=== PATIENT | male | born 1940 | race Caucasian/White ===

== ENCOUNTER → 2016-10-17 | Outpatient (REF) | payer BC, MEDICARE ==
[~2016-10-17] MED LIST: ASPI1TAB PO; ATOR1TAB19 PO; FERR1TAB8 PO; FINA5TAB2 PO; FLOM5CAP PO; GLIP5TAB8 PO; HYDR25TAB PO; JANU100T PO; LISI40TAB PO; METF500T13 PO; PRIL20CA9 PO; SITA50TAB PO
[2016-10-17 19:18] LABS: ALBUMIN 3.4 GM/DL (3.2-5.2); ALBUMIN/GLOBULIN RATIO 0.94 (1.00-1.93); ALKALINE PHOSPHATASE 99 U/L (45-117); ALT/SGPT 15 U/L (12-78); ANION GAP 9 MEQ/L (8-16); AST/SGOT 14 U/L (15-37); BILIRUBIN,TOTAL 0.4 MG/DL (0.2-1.0); BLOOD UREA NITROGEN 11 MG/DL (7-18); CALCIUM LEVEL 8.3 MG/DL (8.8-10.2); CARBON DIOXIDE LEVEL 27 MEQ/L (21-32); CHLORIDE LEVEL 104 MEQ/L (98-107); CREATININE FOR GFR 0.95 MG/DL (0.70-1.30); GLOMERULAR FILTRATION RATE > 60.0 (>42); GLUCOSE, FASTING 139 MG/DL (83-110); POTASSIUM SERUM 3.9 MEQ/L (3.5-5.1); SODIUM LEVEL 140 MEQ/L (136-145)
[2016-10-17 19:37] LABS: ADD MORPHOLOGY? YES; BASO % 0.7 % (0.0-1.0); EOS # 0.1 K/mm3 (0.0-0.50); EOS % 2.3 % (0.0-3.0); LARGE UNSTAINED CELL # 0.1 K/mm3 (0.0-0.4); LARGE UNSTAINED CELL % 1.9 % (0.0-4.0); LYMPH # 0.7 K/mm3 (1.5-4.5); LYMPH % 13.6 % (24.0-44.0); MEAN CORPUSCULAR HEMOGLOBIN 19.4 pg (27.0-33.0); MEAN CORPUSCULAR HGB CONC 25.5 g/dl (32.0-36.5); MEAN CORPUSCULAR VOLUME 75.8 fl (80.0-96.0); MONO # 0.4 K/mm3 (0.0-0.8); MONO % 7.1 % (0.0-5.0); NEUTROPHILS # 4.1 K/mm3 (1.8-7.7); NEUTROPHILS % 74.4 % (36.0-66.0); PLATELET COUNT, AUTOMATED 490 k/mm3 (150-450); RED CELL DISTRIBUTION WIDTH 15.8 % (11.5-14.5); WHITE BLOOD COUNT 5.5 K/mm3 (4.0-10.0)
[2016-10-17 21:08] LABS: ANISOCYTOSIS 1+
[2016-10-17 21:09] LABS: HYPOCHROMASIA 2+; POIKILOCYTOSIS 1+; POLYCHROMASIA 1+; SCHISTOCYTES 1+
== END ==
LOC: M SFHCCAPE 11:05
PROVIDERS: ATTEND Nurse Practitioner
DX: R23.1 Pallor (principal); E11.00 Type 2 diabetes mellitus with hyperosmolarity without nonketotic hyperglycemic-hyperosmolar coma (NKHHC)

== ENCOUNTER 2016-10-18 06:50 | Observation (INO) | payer BC, MEDICARE ==
[~2016-10-18] VITALS: Ht 185.4 cm; Wt 79.8 kg
[2016-10-18] MEDS ORDERED: GLIP5TAB8 PO (07:04)
[2016-10-18] MEDS ORDERED: FLOM5CAP PO (07:04)
[2016-10-18] MEDS ORDERED: FINA5TAB2 PO (07:04)
[2016-10-18] MEDS ORDERED: PRIL20CA9 PO (07:04)
[2016-10-18] MEDS ORDERED: ASPI1TAB PO (07:04)
[2016-10-18] MEDS ORDERED: METF500T13 PO ×2 (07:04→09:15)
[2016-10-18] MEDS ORDERED: LISI40TAB PO (07:04)
[2016-10-18] MEDS ORDERED: ATOR1TAB19 PO (07:04)
[2016-10-18] MEDS ORDERED: SITA50TAB PO (07:04)
[2016-10-18] MEDS ORDERED: HYDR25TAB PO (07:04)
[2016-10-18 07:57] LABS: MEAN CORPUSCULAR HEMOGLOBIN 19.1 pg (27.0-33.0); MEAN CORPUSCULAR HGB CONC 26.2 g/dl (32.0-36.5); MEAN CORPUSCULAR VOLUME 72.8 fl (80.0-96.0); PLATELET COUNT, AUTOMATED 491 k/mm3 (150-450); RED CELL DISTRIBUTION WIDTH 16.1 % (11.5-14.5)
[2016-10-18 08:02] LABS: WHITE BLOOD COUNT 7.5 K/mm3 (4.0-10.0)
[2016-10-18 08:08] LABS: ANION GAP 10 MEQ/L (8-16); BLOOD UREA NITROGEN 9 MG/DL (7-18); CALCIUM LEVEL 8.9 MG/DL (8.8-10.2); CARBON DIOXIDE LEVEL 27 MEQ/L (21-32); CHLORIDE LEVEL 104 MEQ/L (98-107); CREATININE FOR GFR 0.92 MG/DL (0.70-1.30); GLOMERULAR FILTRATION RATE > 60.0 (>42); GLUCOSE, FASTING 195 MG/DL (83-110); POTASSIUM SERUM 3.5 MEQ/L (3.5-5.1); SODIUM LEVEL 141 MEQ/L (136-145)
[2016-10-18 08:29] LABS: ALBUMIN 3.5 GM/DL (3.2-5.2); ALBUMIN/GLOBULIN RATIO 0.92 (1.00-1.93); ALKALINE PHOSPHATASE 101 U/L (45-117); ALT/SGPT 13 U/L (12-78); AST/SGOT 21 U/L (15-37); BILIRUBIN,DIRECT < 0.1 MG/DL (0.0-0.2); BILIRUBIN,TOTAL 0.3 MG/DL (0.2-1.0); PERCENT SATURATION 8.4 % (19.7-50.0); TOTAL IRON BINDING CAPACITY 261 UG/DL (250-450); TOTAL PROTEIN 7.3 GM/DL (6.4-8.2)
[2016-10-18 08:30] LABS: INR 0.97
[2016-10-18 08:37] LABS: DIFF SLIDE NUMBER 130
[2016-10-18 08:38] LABS: RETIC HEMOGLOBIN CONTENT CHr 20.9 PG (24-36); RETICULOCYTE % 2.65 % (0.5-1.5); RETICULOCYTE ABSOLUTE ADVIA212 79 x10(9)/L (17-77)
--- NOTE | 2016-10-18 09:11 | REP ---
Chest two views HISTORY: Cough Comparison: None The lungs are clear. The heart is normal in size. The pulmonary vasculature is normal in appearance. Degenerative change is present in the spine. IMPRESSION: No acute disease. Signed by Luis A Vinson MD 10/18/2016 09:03 A
[2016-10-18] MEDS ORDERED: JANU100T PO (09:15)
[2016-10-18 10:18] LABS: EOSINOPHILS 4 % (0-5)
[2016-10-18 10:19] LABS: ANISOCYTOSIS 2+; HYPOCHROMASIA 2+; OVALOCYTES 1+
[2016-10-18 10:20] LABS: ACANTHOCYTES 1+
[2016-10-18] MEDS ORDERED: GLUCOSE 4 GM CHEW TABLET PO PRN (10:30)
[2016-10-18] MEDS ORDERED: DEXTROSE 50% 50 ML SYRINGE IV PRN (10:30)
[2016-10-18] MEDS ORDERED: ONDANSETRON 4MG/2ML VIAL (J2405) IV PRN (10:30)
[2016-10-18] MEDS ORDERED: GLUCAGON FOR INJ 1 MG VIAL (J1610) SC PRN (10:30)
[2016-10-18] MEDS ORDERED: ACETAMINOPHEN TAB 650MG DOSE (2X325MG) PO PRN (10:30)
--- NOTE | 2016-10-18 10:49 | ECGEPIP ---
Stationary ECG Study [facility] - ED Test Date: 2016-10-18 Pat Name: MATTHEW BUTTS Department: Room: - Gender: M Counseling Aide: JCristofer : 1940 Requested By: Maddison Scott Order Number: [id number] Reading MD: Maddison Scott Measurements Intervals [place] Rate: 97 P: 35 PA: 171 QRS: -24 QRSD: 134 T: 16 QT: 376 QTc: 480 Interpretive Statements SINUS RHYTHM BORDERLINE LEFT AXIS DEVIATION RIGHT BUNDLE BRANCH BLOCK NO PRIOR FOR COMPARISON Electronically Signed On 10-18-2016 10:49:25 EDT by Maddison Scott
[2016-10-18] MEDS: HumaLOG INSULIN (NovoLOG) PER UNIT SC SCH ×3 (12:47→21:00)
[2016-10-18 12:50] VITALS: BP 141/74
[2016-10-18] MEDS: OMEPRAZOLE 20 MG CAP PO SCH (13:27)
[2016-10-18] MEDS: TAMSULOSIN 0.4 MG CAP PO SCH (13:27)
[2016-10-18 16:00] VITALS: BP 127/69
[2016-10-18] MEDS: FINASTERIDE 5 MG TAB PO SCH (18:28)
--- NOTE | 2016-10-18 19:06 | HPEPDOC ---
General Date of Admission Oct 18, 2016 at 10:27 Chief Complaint The patient is a 75-year-old male admitted with a reason for visit of Anemia. Source: Patient, Family Exam Limitations: No limitations History of Present Illness 75-year-old male with past medical history of hypertension, dyslipidemia, diabetes mellitus, GERD, and BPH presents to the ER with a chief complaint of increased fatigue and weakness over the last 4 weeks. He is from the [place], [place] area where he resides 8 months out of the year. He stays in the [place] area during the summer months. The patient states that he is very active at baseline, and notes that he plays 18 holes of golf regularly, and does a lot of walking and exercise in general. However, the patient states that during this time. He has felt increasingly exhausted after any kind of physical activity. He denies any complaints of fevers, chills, chest pain, shortness of breath, lightheadedness/dizziness, abdominal pain, or any nausea/vomiting/ diarrhea. He does note that he has lost about 6 pounds over the last 3 months, however this was intentional as the patient states that he wanted to get his blood sugar levels under better control. The patient states that he presented to [place] for blood work and was noted to have a hemoglobin of 5.4. The patient states that he has not noticed any overt sources of bleeding. He denies any blood in his stool or any dark colored stools. In addition, the patient has denied any blood in his urine as well. He does state that he had a colonoscopy done approximately 5 years ago in [place]. He states that there were no acute findings at that time. In the ER, the patient was noted to have a hemoglobin of 5.6. A guaiac study in the ER was noted to be negative by the ER attending. The patient will be admitted to the hospitalist service for blood transfusion and further evaluation and management of the patient's acute anemia. Home Medications Scheduled Aspirin (Aspirin 81) 81 Mg Tab, 81 MG PO QPM, (Reported) DINNERTIME Atorvastatin Calcium (Atorvastatin Calcium) 10 Mg Tab, 10 MG PO QHS, (Reported) Finasteride (Finasteride) 5 Mg Tab, 5 MG PO DAILY, (Reported) NOONTIME Glipizide (Glipizide) 5 Mg Tab, 5 MG PO BID, (Reported) QAM AND DINNERTIME Hydrochlorothiazide (Hydrochlorothiazide) 25 Mg Tab, 25 MG PO DAILY, (Reported) Lisinopril (Lisinopril) 40 Mg Tab, 40 MG PO DAILY, (Reported) Metformin Hydrochloride (Metformin HCl) 500 Mg Tab, 1,000 MG PO QAM, (Reported) Metformin Hydrochloride (Metformin HCl) 500 Mg Tab, 500 MG PO TID, (Reported) LUNCH, DINNER, BEDTIME Omeprazole (Prilosec) 20 Mg Cap, 20 MG PO DAILY, (Reported) NOONTIME Sitagliptin Phosphate (Januvia) 100 Mg Tab, 50 MG PO QHS, (Reported) Tamsulosin Hydrochloride (Flomax) 0.4 Mg Cap, 0.4 MG PO DAILY, (Reported) NOONTIME Allergies Coded Allergies: No Known Allergies (Unverified , 10/18/16) Past Medical History Medical History As noted in HPI. Surgical History Right and left breast lump status post lumpectomy, benign. 3 years ago Bladder tumor, status post excision in 2011, noted to be benign. Family History Significant Family History: Other (multiple family members with history of diabetes mellitus. Father was diagnosed with colon cancer at age of 79.) Social History * Smoker: Denies Alcohol: Denies Drugs: denies Retired. 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 Lives with his . Functionally independent at baseline. Review of Symptoms Other systems 10 point review of systems negative unless otherwise specified in HPI. Physical Examination General Exam: Positive: Alert, Cooperative, No Acute Distress ENT Exam: Positive: Atraumatic, Mucous membr. moist/pink Neck Exam: Negative: JVD Chest Exam: Positive: Clear to auscultation, Normal air movement Heart Exam: Positive: Rate Normal, Normal S1, Normal S2 Telemetry: Positive: Sinus Abdomen Exam: Positive: Soft, Negative: Tenderness Extremity Exam: Negative: Tenderness, Swelling Psych Exam: Positive: Oriented x 3 Vital Signs Vital Signs Date Time Temp Pulse Resp B/P (MAP) Pulse Ox O2 Delivery O2 Flow Rate FiO2 10/18/16 16:00 98.7 95 18 127/69 (88) 97 Room Air Laboratory Data Labs 24H Laboratory Tests 2 10/18/16 07:34: Neutrophils 73, Lymphocytes (Manual) 19, Monocytes (Manual) 4, Eosinophils ( Manual) 4, Hypochromasia 2+, Anisocytosis 2+, Ovalocytes 1+, Acanthocytes 1+, Platelet Estimate INCREASED, Absolute Reticulocyte Count 79H, Percent Reticulocyte Count 2.65H, Reticulocyte Hgb Content (CHr) 20.9L, Prothrombin Time 13.0, Prothromb Time International Ratio 0.97, Anion Gap 10, Glomerular Filtration Rate > 60.0, Blood Urea Nitrogen 9, Creatinine 0.92, Sodium Level 141 , Potassium Level 3.5, Chloride Level 104, Carbon Dioxide Level 27, Calcium Level 8.9, Iron Level 22L, Total Iron Binding Capacity 261, Transferrin % Saturation 8.4L, Aspartate Amino Transf (AST/SGOT) 21, Alanine Aminotransferase (ALT/SGPT) 13, Alkaline Phosphatase 101, Total Bilirubin 0.3, Direct Bilirubin < 0.1, Total Protein 7.3, Albumin 3.5, Albumin/Globulin Ratio 0.92L, Lipase 153 10/18/16 12:45: Bedside Glucose (Misc Panel) 92 10/18/16 18:08: Bedside Glucose (Misc Panel) 169H CBC/BMP Laboratory Tests 10/18/16 07:34 Red Blood Count 2.92 L, Mean Corpuscular Volume 72.8 L, Mean Corpuscular Hemoglobin 19.1 L, Mean Corpuscular Hemoglobin Concent 26.2 L, Red Cell Distribution Width 16.1 H, Calcium Level 8.9 10/18/16 13:07 Plan / VTE VTE Prophylaxis Ordered?: Yes Plan Plan Acute anemia Hemoglobin noted to be 5.6 in the ER Patient with no overt source of bleeding noted Stool guaiac study negative in the ER as per ER attending We will transfuse the patient 2 units packed red blood cells and repeat an H&H thereafter We will transfuse the patient for hemoglobin greater than 8 Patient with no acute complaints of chest pain, palpitations, or shortness of breath at this time EKG with no acute ST findings Blood pressure has remained stable We will order stool occult blood study Urinalysis ordered for ascertainment for possible bleeding from a urinary source Ultrasound of the bladder ordered given the patient's history of bladder tumor removal We will continue to monitor the patient's H&H every 6 hours and transfuse as needed We will consider a colonoscopy here once the patient's hemoglobin has stabilized Diabetes mellitus We will continue the patient on insulin sliding scale for now and hold oral hypoglycemics Dyslipidemia Continue statin Hypertension, stable We will hold the patient's antihypertensives at this time as he does have acute anemia. BPH Continue Proscar, Flomax GERD Continue Prilosec DVT prophylaxis TEDs/SCDs (Anemia) Dispo. We will transfuse the patient 2 units of packed red blood cells and continue to monitor H and H as well as his vital signs. Once his hemoglobin has stabilized we will consider inpatient versus outpatient colonoscopy. MARGARITA FRANK MD Oct 18, 2016 19:06
--- NOTE | 2016-10-18 19:20 | REP ---
ULTRASOUND BLADDER: Real-time sonographic evaluation of the bladder performed. The bladder is well distended measuring 8.9 x 11.0 x 8.1 cm for a total volume of 518 mL. No bladder mass or calculus is seen. There are bilateral ureteral jets in the urinary bladder with Doppler color evaluation. Postvoid residual is 223 mL which is 43% of the original volume. IMPRESSION: Postvoid residual of 43%. No bladder mass or calculus. Signed by Erick Ardon MD 10/18/2016 08:15 P
[2016-10-18 20:00] VITALS: BP 123/62
[2016-10-18] MEDS: ATORVASTATIN 10 MG TAB PO SCH (21:20)
[2016-10-18 23:22] LABS: REASON FOR REVIEW ANEMIA / RBC MORPH
[2016-10-19] VITALS: BP 140/81
--- NOTE | 2016-10-19 00:30 | REPUSA ---
CLINICAL HISTORY: Abdominal pain. COMMENTS: There is gas in both large and small bowel with no evidence for obstruction. Large amount of fecal material is present through out the colon. There is no evidence for free air, free fluid, masses, organomegaly, or urinary calculi. S-shaped degenerative scoliosis. Impression: Large amount of fecal material. Thank you for your kind referral of this patient.
[2016-10-19 04:00] VITALS: BP 133/72
[2016-10-19 07:15] LABS: MEAN CORPUSCULAR HEMOGLOBIN 23.3 pg (27.0-33.0); MEAN CORPUSCULAR HGB CONC 30.4 g/dl (32.0-36.5); MEAN CORPUSCULAR VOLUME 76.7 fl (80.0-96.0); RED CELL DISTRIBUTION WIDTH 16.9 % (11.5-14.5); WHITE BLOOD COUNT 5.3 K/mm3 (4.0-10.0)
[2016-10-19 07:20] LABS: INR 1.03
[2016-10-19 07:30] LABS: ANION GAP 8 MEQ/L (8-16); BLOOD UREA NITROGEN 9 MG/DL (7-18); CALCIUM LEVEL 8.5 MG/DL (8.8-10.2); CARBON DIOXIDE LEVEL 28 MEQ/L (21-32); CHLORIDE LEVEL 109 MEQ/L (98-107); CREATININE FOR GFR 0.81 MG/DL (0.70-1.30); FERRITIN 7 NG/ML (26-388); GLOMERULAR FILTRATION RATE > 60.0 (>42); GLUCOSE, FASTING 149 MG/DL (83-110); MAGNESIUM LEVEL 2.2 MG/DL (1.8-2.4); POTASSIUM SERUM 3.9 MEQ/L (3.5-5.1); SODIUM LEVEL 145 MEQ/L (136-145)
[2016-10-19 08:00] VITALS: BP 138/69
[2016-10-19] MEDS: FINASTERIDE 5 MG TAB PO SCH (08:41)
[2016-10-19] MEDS: TAMSULOSIN 0.4 MG CAP PO SCH (08:41)
[2016-10-19] MEDS: HumaLOG INSULIN (NovoLOG) PER UNIT SC SCH ×4 (08:41→21:00)
[2016-10-19] MEDS: FERROUS SULFATE 325MG TAB PO SCH (08:41)
[2016-10-19] MEDS: OMEPRAZOLE 20 MG CAP PO SCH (08:41)
--- NOTE | 2016-10-19 15:48 | IPNPDOC ---
Subjective Date Seen The patient was seen on 10/19/16. Subjective Chief Complaint/HPI Patient seen and examined at the bedside. States that he is feeling well and denies any acute complaints. Notes that his bowel movement this morning was regular and denies noting any blood in it. Objective Physical Examination General Exam: Positive: Alert, Cooperative, No Acute Distress ENT Exam: Positive: Atraumatic, Mucous membr. moist/pink Neck Exam: Negative: JVD Chest Exam: Positive: Clear to auscultation, Normal air movement Heart Exam: Positive: Rate Normal, Normal S1, Normal S2 Telemetry: Positive: Sinus Abdomen Exam: Positive: Soft, Negative: Tenderness Extremity Exam: Negative: Tenderness, Swelling Psych Exam: Positive: Oriented x 3 Assessment /Plan Plan/VTE VTE Prophylaxis Ordered?: Yes Plan Acute anemia Hemoglobin noted to be 5.6 in the ER-->8.2 this afternoon (s/p Transfusion of 4 Units) Peripheral smear suggestive of Iron Def Anemia, with occult blood loss Stool guaiac study negative in the ER as per ER attending Stool Occult Blood noted to be positive No overt bright red blood or dark stools noted during BM UA negative for Blood Ultrasound of the bladder with no acute findings (Hx of Bladder tumor) Patient with no acute complaints of chest pain, palpitations, or shortness of breath at this time EKG with no acute ST findings Blood pressure has remained stable We will continue to monitor the patient's H&H every 6 hours and transfuse as needed I did discuss the case with on-call clerical associate Dr. Hurst, he will schedule the patient to see him in the outpatient setting on 10/21/16 at 1 PM and schedule an outpatient colonoscopy accordingly. I discussed this with the patient and his at the bedside Diabetes mellitus We will continue the patient on insulin sliding scale for now and hold oral hypoglycemics Dyslipidemia Continue statin Hypertension, stable We will hold the patient's antihypertensives at this time as he does have acute anemia. BPH Continue Proscar, Flomax GERD Continue Prilosec DVT prophylaxis TEDs/SCDs (Anemia) Dispo. We will monitor the patient overnight, and D/C in the AM if Hgb remains stable. VS, I&O, 24H, Fishbone Vital Signs/I&O Vital Signs Date Time Temp Pulse Resp B/P (MAP) Pulse Ox O2 Delivery O2 Flow Rate FiO2 10/19/16 08:00 97.6 97 18 138/69 (92) 100 Room Air I&O- Last 24 Hours up to 6 AM 10/19/16 06:00 Intake Total 2000 ml Output Total 1525 ml Balance 475 ml Laboratory Data 24H LABS Laboratory Tests 2 10/18/16 18:08: Bedside Glucose (Misc Panel) 169H 10/18/16 19:25: Differential Slide Review Report, Differential Pathologist's Review ANEMIA / RBC MORPH, Peripheral Blood Smear Path Consult PERIPHERAL SMEAR 10/18/16 20:50: Bedside Glucose (Misc Panel) 134H 10/19/16 06:56: Prothrombin Time 13.6, Prothromb Time International Ratio 1.03, Activated Partial Thromboplast Time 30.2, Anion Gap 8, Glomerular Filtration Rate > 60.0, Blood Urea Nitrogen 9, Creatinine 0.81, Sodium Level 145, Potassium Level 3.9, Chloride Level 109H, Carbon Dioxide Level 28, Calcium Level 8.5L, Magnesium Level 2.2, Ferritin 7L, Lactate Dehydrogenase 155 10/19/16 11:35: Urine Appearance CLEAR, Urine Color COLORLESS, Urine pH 6.0, Urine Specific [place] 1.000L, Urine Protein NEGATIVE, Urine Glucose (UA) 2+H, Urine Ketones NEGATIVE, Urine Urobilinogen 0.2, Urine Bilirubin NEGATIVE, Urine Leukocyte Esterase NEGATIVE, Urine Blood NEGATIVE, Urine Nitrite NEGATIVE, Urine WBC (Auto ) 0, Urine RBC (Auto) 0, Urine Hyaline Casts (Auto) 0, Urine Bacteria (Auto) NEGATIVE, Urine Squamous Epithelial Cells 0, Urine Sperm (Auto) 10/19/16 11:50: Bedside Glucose (Misc Panel) 254H CBC/BMP Laboratory Tests 10/18/16 19:25 10/19/16 06:56 Red Blood Count 3.49 L, Mean Corpuscular Volume 76.7 L, Mean Corpuscular Hemoglobin 23.3 L, Mean Corpuscular Hemoglobin Concent 30.4 L, Red Cell Distribution Width 16.9 H, Calcium Level 8.5 L 10/19/16 12:54 Microbiology Microbiology 10/19/16 Stool Occult Blood (TICO) - Final, Complete MARGARITA FRANK MD Oct 19, 2016 15:48
[2016-10-19 16:00] VITALS: BP 144/79
[2016-10-19 20:00] VITALS: BP 133/72
[2016-10-19] MEDS: ATORVASTATIN 10 MG TAB PO SCH (21:22)
[2016-10-19 22:10] VITALS: BP 151/89
[2016-10-20 06:00] VITALS: BP 136/63
[2016-10-20 07:45] LABS: INR 1.06
[2016-10-20 07:46] LABS: MEAN CORPUSCULAR HEMOGLOBIN 23.1 pg (27.0-33.0); MEAN CORPUSCULAR HGB CONC 29.6 g/dl (32.0-36.5); MEAN CORPUSCULAR VOLUME 78.2 fl (80.0-96.0); RED CELL DISTRIBUTION WIDTH 17.9 % (11.5-14.5)
[2016-10-20 08:06] LABS: ANION GAP 9 MEQ/L (8-16); BLOOD UREA NITROGEN 7 MG/DL (7-18); CALCIUM LEVEL 8.3 MG/DL (8.8-10.2); CARBON DIOXIDE LEVEL 28 MEQ/L (21-32); CHLORIDE LEVEL 109 MEQ/L (98-107); CREATININE FOR GFR 0.77 MG/DL (0.70-1.30); GLOMERULAR FILTRATION RATE > 60.0 (>42); GLUCOSE, FASTING 163 MG/DL (83-110); POTASSIUM SERUM 3.9 MEQ/L (3.5-5.1); SODIUM LEVEL 146 MEQ/L (136-145)
[2016-10-20] MEDS: FERROUS SULFATE 325MG TAB PO SCH (08:29)
[2016-10-20] MEDS: OMEPRAZOLE 20 MG CAP PO SCH (08:29)
[2016-10-20] MEDS: TAMSULOSIN 0.4 MG CAP PO SCH (08:29)
[2016-10-20] MEDS: HumaLOG INSULIN (NovoLOG) PER UNIT SC SCH ×2 (08:29→13:05)
[2016-10-20] MEDS: FINASTERIDE 5 MG TAB PO SCH (08:29)
[2016-10-20] MEDS ORDERED: FERR1TAB8 PO (10:31)
[2016-10-20 14:00] VITALS: BP 126/70
[2016-10-20 14:11] LABS: MEAN CORPUSCULAR HEMOGLOBIN 23.4 pg (27.0-33.0); MEAN CORPUSCULAR HGB CONC 29.3 g/dl (32.0-36.5); MEAN CORPUSCULAR VOLUME 79.7 fl (80.0-96.0); RED CELL DISTRIBUTION WIDTH 18.1 % (11.5-14.5); WHITE BLOOD COUNT 5.4 K/mm3 (4.0-10.0)
--- NOTE | 2016-10-20 14:40 | DS.PDOC ---
Discharge Summary General Date of Admission Oct 18, 2016 at 10:27 Date of Discharge 10/20/16 Discharge Summary PROCEDURES PERFORMED DURING STAY: None. ADMITTING DIAGNOSES: 1. .Acute Anemia 2. .Stool Occult Positive for Blood DISCHARGE DIAGNOSES: 1. .Acute Anemia 2. .Stool Occult Positive for Blood COMPLICATIONS/CHIEF COMPLAINT: Anemia. HISTORY OF PRESENT ILLNESS: . 75-year-old male with past medical history of hypertension, dyslipidemia, diabetes mellitus, GERD, and BPH presents to the ER with a chief complaint of increased fatigue and weakness over the last 4 weeks. He is from the [place], [place] area where he resides 8 months out of the year. He stays in the [place] area during the summer months. The patient states that he is very active at baseline, and notes that he plays 18 holes of golf regularly, and does a lot of walking and exercise in general. However, the patient states that during this time. He has felt increasingly exhausted after any kind of physical activity. He denies any complaints of fevers, chills, chest pain, shortness of breath, lightheadedness/dizziness, abdominal pain, or any nausea/vomiting/ diarrhea. He does note that he has lost about 6 pounds over the last 3 months, however this was intentional as the patient states that he wanted to get his blood sugar levels under better control. The patient states that he presented to [place] for blood work and was noted to have a hemoglobin of 5.4. The patient states that he has not noticed any overt sources of bleeding. He denies any blood in his stool or any dark colored stools. In addition, the patient has denied any blood in his urine as well. He does state that he had a colonoscopy done approximately 5 years ago in [place]. He states that there were no acute findings at that time. In the ER, the patient was noted to have a hemoglobin of 5.6. A guaiac study in the ER was noted to be negative by the ER attending. The patient was admitted to the hospitalist service for blood transfusion and further evaluation and management of the patient's acute anemia. During hospitalization, the patient was noted to have a positive stool occult blood study. The patient received a total of 5 units of packed red blood cells during admission. He did not have any episodes of overt bleeding. He remained hemodynamically stable and without any acute complaints of shortness of breath, chest pain, or palpitations. His hemoglobin today is at 8.9. I did review his records from his primary care physician's office, which revealed a baseline hemoglobin closer to 13 from December 2014. I do suspect that the patient's hemoglobin has steadily been dropping since then. A colonoscopy from 2011 revealed diverticular disease in the sigmoid colon, but was otherwise unremarkable. Peripheral smear here is suggestive of iron deficiency anemia and possible occult blood loss. I did discuss the case with Dr. Hurst of GI, who will schedule to see the patient tomorrow (10/21/16 @ 1pm) at his clinic, and set him up for a colonoscopy. At this time, the patient states that he is feeling much better and he is eager to return home. I have started the patient on iron supplementation. I've advised the patient to follow-up with the GI doctor tomorrow for further outpatient workup of his anemia. In addition, the patient is to follow-up with his primary care physician within one week for further monitoring of his chronic comorbidities. The patient has been advised to return to the ER if his symptoms were to return, worsen, or persist. DISCHARGE MEDICATIONS: Please see below. ALLERGIES: Please see below. PHYSICAL EXAMINATION ON DISCHARGE: VITAL SIGNS: Please see below. General Exam: Positive: Alert, Cooperative, No Acute Distress ENT Exam: Positive: Atraumatic, Mucous membr. moist/pink Neck Exam: Negative: JVD Chest Exam: Positive: Clear to auscultation, Normal air movement Heart Exam: Positive: Rate Normal, Normal S1, Normal S2 Telemetry: Positive: Sinus Abdomen Exam: Positive: Soft, Negative: Tenderness Extremity Exam: Negative: Tenderness, Swelling Psych Exam: Positive: Oriented x 3 LABORATORY DATA: Please see below. IMAGING: ULTRASOUND BLADDER: Real-time sonographic evaluation of the bladder performed. The bladder is well distended measuring 8.9 x 11.0 x 8.1 cm for a total volume of 518 mL. No bladder mass or calculus is seen. There are bilateral ureteral jets in the urinary bladder with Doppler color evaluation. Postvoid residual is 223 mL which is 43% of the original volume. IMPRESSION: Postvoid residual of 43%. No bladder mass or calculus. PROGNOSIS: Medically stable ACTIVITY: As tolerated. DIET: . Carb consistent diet DISCHARGE PLAN: Home DISPOSITION: . DISCHARGE INSTRUCTIONS: 1. . Follow-up with GI appointment tomorrow 10/21/[address] at [address] Hurst 2. . Follow-up with primary care physician within one week 3. . Return to the ER if symptoms return, persist, or worsen 4. . Take iron supplementation as prescribed DISCHARGE CONDITION: Stable. TIME SPENT ON DISCHARGE: Greater than 30 minutes. Vital Signs/I&Os Vital Signs Date Time Temp Pulse Resp B/P (MAP) Pulse Ox O2 Delivery O2 Flow Rate FiO2 10/20/16 06:00 98.4 70 18 136/63 (87) 96 Room Air I&O- Last 24 Hours up to 6 AM 10/20/16 06:00 Intake Total 720 ml Output Total 350 ml Balance 370 ml Laboratory Data Labs 24H Laboratory Tests 2 10/19/16 16:51: Bedside Glucose (Misc Panel) 150H 10/19/16 20:40: Bedside Glucose (Misc Panel) 230H 10/20/16 07:03: Prothrombin Time 13.9, Prothromb Time International Ratio 1.06, Activated Partial Thromboplast Time 30.7, Anion Gap 9, Glomerular Filtration Rate > 60.0, Blood Urea Nitrogen 7, Creatinine 0.77, Sodium Level 146H, Potassium Level 3.9, Chloride Level 109H, Carbon Dioxide Level 28, Calcium Level 8.3L 10/20/16 11:39: Bedside Glucose (Misc Panel) 257H CBC/BMP Laboratory Tests 10/19/16 19:00 10/20/16 01:19 10/20/16 07:03 Red Blood Count 3.33 L, Mean Corpuscular Volume 78.2 L, Mean Corpuscular Hemoglobin 23.1 L, Mean Corpuscular Hemoglobin Concent 29.6 L, Red Cell Distribution Width 17.9 H, Calcium Level 8.3 L 10/20/16 13:56 Red Blood Count 3.79 L, Mean Corpuscular Volume 79.7 L, Mean Corpuscular Hemoglobin 23.4 L, Mean Corpuscular Hemoglobin Concent 29.3 L, Red Cell Distribution Width 18.1 H FSBS Laboratory Tests Test 10/19/16 16:51 10/19/16 20:40 10/20/16 11:39 Range/Units Bedside Glucose (Misc Panel) 150 230 257 83-110 MG/DL Microbiology Microbiology 10/19/16 Stool Occult Blood (TICO) - Final, Complete Discharge Medications Scheduled Atorvastatin Calcium (Atorvastatin Calcium) 10 Mg Tab, 10 MG PO QHS, (Reported) Ferrous Sulfate (Ferrous Sulfate) 325 Mg Tab, 325 MG PO DAILY Finasteride (Finasteride) 5 Mg Tab, 5 MG PO DAILY, (Reported) NOONTIME Glipizide (Glipizide) 5 Mg Tab, 5 MG PO BID, (Reported) QAM AND DINNERTIME Hydrochlorothiazide (Hydrochlorothiazide) 25 Mg Tab, 25 MG PO DAILY, (Reported) Lisinopril (Lisinopril) 40 Mg Tab, 40 MG PO DAILY, (Reported) Metformin Hydrochloride (Metformin HCl) 500 Mg Tab, 1,000 MG PO QAM, (Reported) Metformin Hydrochloride (Metformin HCl) 500 Mg Tab, 500 MG PO TID, (Reported) LUNCH, DINNER, BEDTIME Omeprazole (Prilosec) 20 Mg Cap, 20 MG PO DAILY, (Reported) NOONTIME Sitagliptin Phosphate (Januvia) 100 Mg Tab, 50 MG PO QHS, (Reported) Tamsulosin Hydrochloride (Flomax) 0.4 Mg Cap, 0.4 MG PO DAILY, (Reported) NOONTIME Allergies Coded Allergies: No Known Allergies (Unverified , 10/18/16) MARGARITA FRANK MD Oct 20, 2016 14:40
[2016-10-24] MEDS ORDERED: ASPI1TAB PO (17:08)
== END 2016-10-20 15:30 | disposition home or self-care (01) ==
LOC: M ED 06:50 → M ED INP 10:27 → M PED 11:41 → M MS5PR 10-19 22:08
PROVIDERS: ADMIT Internal Medicine; ATTEND Internal Medicine
DX: D64.9 Anemia, unspecified (principal); K92.1 Melena; R53.83 Other fatigue; R53.1 Weakness; I10 Essential (primary) hypertension; E78.4 Other hyperlipidemia; E11.9 Type 2 diabetes mellitus without complications; K21.9 Gastro-esophageal reflux disease without esophagitis; N40.0 Benign prostatic hyperplasia without lower urinary tract symptoms; Z79.82 Long term (current) use of aspirin; Z79.899 Other long term (current) drug therapy; Z12.11 Encounter for screening for malignant neoplasm of colon
CPT/HCPCS: 36415; 36430; 71020; 74000; 76857; 80048; 80076; 81001; 82270; 82728; 83550; 83615; 83690; 83735; 85007; 85014; 85018; 85027; 85046; 85610; 85730; 86850; 86900; 86901; 86920; 93005; 93041; 99285; G0378; P9016

== ENCOUNTER 2016-10-25 07:02 | Outpatient (CLI) | payer MEDICARE ==
[~2016-10-25] VITALS: Ht 185.4 cm; Wt 81.6 kg
[~2016-10-25 07:02] MED LIST changes: +NS 1,000 ML IV ONE
[2016-10-25] MEDS ORDERED: PROPOFOL 200 MG/20 ML VIAL As Ordered ONE ×2 (07:09→08:47)
[2016-10-25] MEDS ORDERED: LIDOCAINE 2% INJ 100 MG/5 ML SDV (FOR ANES.) As Ordered ONE (07:09)
--- NOTE | 2016-10-25 08:26 | ROOR ---
Patient Name: Anshul Blackburn Procedure Date: 10/25/2016 7:39 AM Date of : 1940 Age: 75 Room: [facility] Gender: Male Note Status: Finalized Procedure: Colonoscopy Indications: Heme positive stool, Iron deficiency anemia Providers: Jean Hurst MD Referring MD: LANCE [facility]OT[facility] L[facility], Admin. Requesting Provider: Medicines: Monitored Anesthesia Care Complications: No immediate complications. Procedure: Pre-Anesthesia Assessment: - Prior to the procedure, a History and Physical was performed, and patient medications and allergies were reviewed. The patient is competent. The risks and benefits of the procedure and the sedation options and risks were discussed with the patient. All questions were answered and informed consent was obtained. Patient identification and proposed procedure were verified by the physician, the nurse and the online communications manager in the procedure room. Mental Status Examination: alert and oriented. Airway Examination: normal oropharyngeal airway and neck mobility. Respiratory Examination: clear to auscultation. CV Examination: normal. Prophylactic Antibiotics: The patient does not require prophylactic antibiotics. Prior Anticoagulants: The patient has taken no previous anticoagulant or antiplatelet agents. ASA Grade Assessment: III - A patient with severe systemic disease. After reviewing the risks and benefits, the patient was deemed in satisfactory condition to undergo the procedure. The anesthesia plan was to use monitored anesthesia care (MAC). Immediately prior to administration of medications, the patient was re-assessed for adequacy to receive sedatives. The heart rate, respiratory rate, oxygen saturations, blood pressure, adequacy of pulmonary ventilation, and response to care were monitored throughout the procedure. The physical status of the patient was re-assessed after the procedure. The Colonoscope was introduced through the anus and advanced to the terminal ileum, with identification of the appendiceal orifice and IC valve. The colonoscopy was performed without difficulty. The patient tolerated the procedure well. The quality of the bowel preparation was good. The terminal ileum, ileocecal valve, appendiceal orifice, and rectum were photographed. Scope insertion time was 3 minutes. Scope withdrawal time was 12 minutes. The total duration of the procedure was 15 minutes. Findings: The perianal and digital rectal examinations were normal. The terminal ileum appeared normal. A 8 mm polyp was found in the ascending colon. The polyp was sessile. The polyp was removed with a hot snare. Resection and retrieval were complete. Verification of patient identification for the specimen was done by the physician and nurse using the patient's name, date and medical record number. Estimated blood loss was minimal. Multiple small and large-mouthed diverticula were found from sigmoid to ascending colon. There was no evidence of diverticular bleeding. External and internal hemorrhoids were found during retroflexion. The hemorrhoids were small. There is no endoscopic evidence of mass in the entire colon. Impression: - The examined portion of the ileum was normal. - One 8 mm polyp in the ascending colon, removed with a hot snare. Resected and retrieved. - Moderate diverticulosis from sigmoid to ascending colon. There was no evidence of diverticular bleeding. - External and internal hemorrhoids. Recommendation: - Patient has a contact number available for emergencies. The signs and symptoms of potential delayed complications were discussed with the patient. Return to normal activities tomorrow. Written discharge instructions were provided to the patient. - High fiber diet. - Continue present medications. - Await pathology results. - Repeat colonoscopy in 5 years for surveillance based on pathology results. - Telephone GI clinic for pathology results in 1 week. - Return to GI clinic in 2 weeks. - To visualize the small bowel, perform video capsule endoscopy at appointment to be scheduled. - Return to primary care physician. Jean Hurst MD Jean Hurst MD 10/25/2016 8:26:15 AM This report has been signed electronically. Number of Addenda: 0 Note Initiated On: 10/25/2016 7:39 AM Estimated Blood Loss: Estimated blood loss: none.
--- NOTE | 2016-10-25 08:36 | ROOR ---
Patient Name: Anshul Blackburn Procedure Date: 10/25/2016 7:38 AM Date of : 1940 Age: 75 Room: [facility] Gender: Male Note Status: Finalized Procedure: Upper GI endoscopy Indications: Iron deficiency anemia Providers: Jean Hurst MD Referring MD: [facility] L[facility], Admin. Requesting Provider: Medicines: Monitored Anesthesia Care Complications: No immediate complications. Procedure: Pre-Anesthesia Assessment: - Prior to the procedure, a History and Physical was performed, and patient medications and allergies were reviewed. The patient is competent. The risks and benefits of the procedure and the sedation options and risks were discussed with the patient. All questions were answered and informed consent was obtained. Patient identification and proposed procedure were verified by the physician, the nurse and the shoe stamper in the procedure room. Mental Status Examination: alert and oriented. Airway Examination: normal oropharyngeal airway and neck mobility. Respiratory Examination: clear to auscultation. CV Examination: normal. Prophylactic Antibiotics: The patient does not require prophylactic antibiotics. Prior Anticoagulants: The patient has taken no previous anticoagulant or antiplatelet agents. ASA Grade Assessment: III - A patient with severe systemic disease. After reviewing the risks and benefits, the patient was deemed in satisfactory condition to undergo the procedure. The anesthesia plan was to use monitored anesthesia care (MAC). Immediately prior to administration of medications, the patient was re-assessed for adequacy to receive sedatives. The heart rate, respiratory rate, oxygen saturations, blood pressure, adequacy of pulmonary ventilation, and response to care were monitored throughout the procedure. The physical status of the patient was re-assessed after the procedure. The Endoscope was introduced through the mouth, and advanced to the second part of duodenum. The upper GI endoscopy was accomplished without difficulty. The patient tolerated the procedure well. Findings: Savary-Saenz Grade II (multiple lesions and folds, noncircumferential, with or without confluence) esophagitis with no bleeding was found in the lower third of the esophagus. Biopsies were taken with a cold forceps for histology. Verification of patient identification for the specimen was done by the physician and nurse using the patient's name, date and medical record number. Estimated blood loss was minimal. A large hiatal hernia was present. Patchy moderate inflammation characterized by erythema and granularity was found in the gastric antrum. Biopsies were taken with a cold forceps for histology. A few 8 mm semi-sessile fundic gland polyps with no bleeding and no stigmata of recent bleeding were found in the gastric fundus and in the gastric body. Biopsies were taken with a cold forceps for histology. The duodenal bulb and second portion of the duodenum were normal. Biopsies for histology were taken with a cold forceps for evaluation of celiac disease. Impression: - Savary-Saenz Grade II reflux esophagitis. Biopsied. - Large hiatal hernia. - Gastritis. Biopsied. - A few fundic gland polyps. Biopsied. - Normal duodenal bulb and second portion of the duodenum. Biopsied. Recommendation: - Patient has a contact number available for emergencies. The signs and symptoms of potential delayed complications were discussed with the patient. Return to normal activities tomorrow. Written discharge instructions were provided to the patient. - Resume previous diet. - Continue present medications. - Await pathology results. - Repeat upper endoscopy in 3 months to check healing. - Follow an antireflux regimen. - Telephone GI clinic for pathology results in 1 week. - Return to GI clinic in 2 weeks. - To visualize the small bowel, perform video capsule endoscopy at appointment to be scheduled. Jean Hurst MD Jean Hurst MD 10/25/2016 8:35:42 AM This report has been signed electronically. Number of Addenda: 0 Note Initiated On: 10/25/2016 7:38 AM Estimated Blood Loss: Estimated blood loss was minimal.
[2016-10-25 09:00] VITALS: BP 115/60
--- NOTE | 2016-11-09 13:47 | ROOR ---
Patient Name: Anshul Blackburn Procedure Date: 11/02/2016 8:00 AM Date of : 1940 Age: 75 Room: Office-Based Procedure Gender: Male Note Status: Finalized Procedure: Video capsule endoscopy Indications: Iron deficiency anemia Providers: Jean Hurst MD Referring MD: Klaus Rendon Md Requesting Provider: Medicines: None Complications: No immediate complications. Procedure: Pre-Anesthesia Assessment: - Prior to the procedure, a History and Physical was performed, and patient medications, allergies and sensitivities were reviewed. The patient's tolerance of previous anesthesia was reviewed. - The risks and benefits of the procedure and the sedation options and risks were discussed with the patient. All questions were answered and informed consent was obtained. - Patient identification and proposed procedure were verified prior to the procedure by the physician and the nurse. - After reviewing the risks and benefits, the patient was deemed in satisfactory condition to undergo the procedure. - Prior to the procedure, no anesthesia or sedation was planned. The video capsule endoscopy was accomplished without difficulty. The patient tolerated the procedure well. Findings: Images of the esophagus, stomach and small bowel were obtained from the swallowed capsule and reviewed. The gastric passage time of the capsule enteroscope was 0-hours 21-minutes. The small bowel passage time of the capsule enteroscope was 6-hours 0-minutes. First Gastric image: 00:02:42 First Duodenal Image: 00:24:02 First Cecal Image:06:24:29 Images attached in complete report include: Possible AVM/artifact : 00:11:18 Superficial ulcer/erosion 00:13:10 Polypoid Lesion: 00:47:23 Small Angioectasia: 02:13:42 Small bowel diverticulum: 03:27:28 Possible Submucosal nodule: 04:14:33 Multiple area in small bowel obscured with food/luminal contents. Impression: - The complete results of this study (for the same date as above) are available in the video capsule equipment database, and these results were personally reviewed by me. - No active overt bleeding lesions noted. - Poor bowel preparation obscures detailed examination of small bowel. - Small possible polypoid lesion in small bowel. - Superficial small ulcer / erosion in stomach. Recommendation: - Patient has a contact number available for emergencies. The signs and symptoms of potential delayed complications were discussed with the patient. Return to normal activities tomorrow. Written discharge instructions were provided to the patient. - Use a proton pump inhibitor PO daily for 8 weeks. - Recommend an iron supplement for 3 months. - Perform a computed tomographic (CT scan) enterography at appointment to be scheduled. - Return to GI clinic as previously scheduled. - Return to primary care physician. Attending Participation: I have reviewed and interpreted the results of the above documented diagnostic study. Jean Hurst MD Jean Hurst MD 11/09/2016 1:46:43 PM This report has been signed electronically. Number of Addenda: 0 Note Initiated On: 11/09/2016 1:33 PM
== END 2016-10-25 09:14 | disposition home or self-care (01) ==
LOC: M OPP 07:02
PROVIDERS: ATTEND Internal Medicine Gastroenterology
DX: D12.2 Benign neoplasm of ascending colon (principal); K57.30 Diverticulosis of large intestine without perforation or abscess without bleeding; K64.4 Residual hemorrhoidal skin tags; K64.8 Other hemorrhoids; K44.9 Diaphragmatic hernia without obstruction or gangrene; K31.7 Polyp of stomach and duodenum; K21.0 Gastro-esophageal reflux disease with esophagitis; I10 Essential (primary) hypertension; E78.00 Pure hypercholesterolemia, unspecified; E11.9 Type 2 diabetes mellitus without complications; Z79.899 Other long term (current) drug therapy; Z79.82 Long term (current) use of aspirin; N50.9 Disorder of male genital organs, unspecified

== ENCOUNTER → 2016-10-27 | Outpatient (REF) | payer MEDICARE ==
[~2016-10-27] MED LIST changes: -NS 1,000 ML IV ONE
[2016-10-27 17:48] LABS: ALBUMIN 3.3 GM/DL (3.2-5.2); ALBUMIN/GLOBULIN RATIO 0.87 (1.00-1.93); ALKALINE PHOSPHATASE 95 U/L (45-117); ALT/SGPT 12 U/L (12-78); ANION GAP 10 MEQ/L (8-16); AST/SGOT 12 U/L (15-37); BILIRUBIN,TOTAL 0.5 MG/DL (0.2-1.0); BLOOD UREA NITROGEN 13 MG/DL (7-18); CALCIUM LEVEL 8.6 MG/DL (8.8-10.2); CARBON DIOXIDE LEVEL 30 MEQ/L (21-32); CHLORIDE LEVEL 104 MEQ/L (98-107); CREATININE FOR GFR 0.86 MG/DL (0.70-1.30); FERRITIN 14 NG/ML (26-388); FREE T4 1.16 NG/DL (0.76-1.46); GLOMERULAR FILTRATION RATE > 60.0 (>42); GLUCOSE, FASTING 127 MG/DL (83-110); POTASSIUM SERUM 3.8 MEQ/L (3.5-5.1); SODIUM LEVEL 144 MEQ/L (136-145); TOTAL PROTEIN 7.1 GM/DL (6.4-8.2)
[2016-10-27 19:07] LABS: ADD MORPHOLOGY? YES; BASO % 0.7 % (0.0-1.0); EOS # 0.1 K/mm3 (0.0-0.50); EOS % 1.7 % (0.0-3.0); LARGE UNSTAINED CELL # 0.1 K/mm3 (0.0-0.4); LARGE UNSTAINED CELL % 1.3 % (0.0-4.0); LYMPH # 1.2 K/mm3 (1.5-4.5); LYMPH % 17.8 % (24.0-44.0); MEAN CORPUSCULAR HEMOGLOBIN 23.9 pg (27.0-33.0); MEAN CORPUSCULAR HGB CONC 29.2 g/dl (32.0-36.5); MEAN CORPUSCULAR VOLUME 81.9 fl (80.0-96.0); MONO # 0.5 K/mm3 (0.0-0.8); MONO % 7.8 % (0.0-5.0); NEUTROPHILS # 4.4 K/mm3 (1.8-7.7); NEUTROPHILS % 70.6 % (36.0-66.0); PLATELET COUNT, AUTOMATED 450 k/mm3 (150-450); RED CELL DISTRIBUTION WIDTH 18.7 % (11.5-14.5); WHITE BLOOD COUNT 6.3 K/mm3 (4.0-10.0)
[2016-10-27 21:11] LABS: ANISOCYTOSIS 1+; HYPOCHROMASIA 1+
== END ==
LOC: M SFHCCAPE 11:38 → M LABDRAWC 13:11
PROVIDERS: ATTEND Physician Assistant
DX: D50.9 Iron deficiency anemia, unspecified (principal); R23.1 Pallor; Z79.899 Other long term (current) drug therapy

== ENCOUNTER → 2016-11-15 | Outpatient (CLI) | payer MEDICARE ==
[~2016-11-15] MED LIST changes: +E-Z-PAQUE 96% w/w SUSP 176GM BTL As Ordered ONE
--- NOTE | 2016-11-15 18:49 | REP ---
SMALL BOWEL FOLLOW THROUGH: The procedure was performed by KG Hurst under the direct supervision of Dr. Jameson. All imaging was reviewed with Dr. Jameson prior to dictation. Standard barium small bowel series was performed with multiple overhead radiographs. In addition the small bowel was fluoroscopically examined. The small bowel was normal in course and caliber. No intrinsic or extrinsic mass lesions are identified. Transit time was approximately 3 hours which is within normal limits. The terminal ileum appeared normal under fluoroscopic examination. IMPRESSION: Unremarkable small bowel series. Fluoroscopic time 1 minute a 19 seconds. Reviewed by KG Villegas 11/18/2016 12:03 PEdited and Signed by Arsalan Jmaeson MD 11/18/2016 02:10 P
== END ==
LOC: M RAD 07:56
PROVIDERS: ATTEND Nurse Practitioner Acute Care
DX: D50.9 Iron deficiency anemia, unspecified (principal)

== ENCOUNTER → 2017-08-30 | Outpatient (REF) | payer MEDICARE ==
[2017-08-30 17:48] LABS: BASO % 0.4 % (0.0-1.0); EOS % 0.8 % (0.0-3.0); HEMATOCRIT 41.7 % (42.0-52.0); HEMOGLOBIN 13.2 g/dl (13.5-17.5); IMMATURE GRANULOCYTE % 0.6 % (0-3.0); LYMPH # 1.2 10^3/uL (1.5-4.5); LYMPH % 23.6 % (24.0-44.0); MEAN CORPUSCULAR HEMOGLOBIN 29.3 pg (27.0-33.0); MEAN CORPUSCULAR HGB CONC 31.7 g/dl (32.0-36.5); MEAN CORPUSCULAR VOLUME 92.7 fl (80.0-96.0); MONO # 0.4 10^3/uL (0.0-0.8); MONO % 8.4 % (0.0-5.0); NEUTROPHILS # 3.3 10^3/uL (1.8-7.7); NEUTROPHILS % 66.2 % (36.0-66.0); PLATELET COUNT, AUTOMATED 304 10^3/uL (150-450); RED CELL DISTRIBUTION WIDTH 12.9 % (11.5-14.5); WHITE BLOOD COUNT 4.9 10^3/uL (4.0-10.0)
[2017-08-30 18:13] LABS: ALBUMIN 3.4 GM/DL (3.2-5.2); ALKALINE PHOSPHATASE 82 U/L (45-117); ALT/SGPT 15 U/L (12-78); ANION GAP 8 MEQ/L (8-16); AST/SGOT 10 U/L (7-37); BILIRUBIN,TOTAL 0.6 MG/DL (0.2-1.0); BLOOD UREA NITROGEN 13 MG/DL (7-18); CALCIUM LEVEL 8.3 MG/DL (8.8-10.2); CARBON DIOXIDE LEVEL 33 MEQ/L (21-32); CHLORIDE LEVEL 103 MEQ/L (98-107); CHOLESTEROL LEVEL 110 MG/DL (<200); CHOLESTEROL RISK RATIO 3.055 (<5); CREATININE FOR GFR 0.85 MG/DL (0.70-1.30); FERRITIN 22 NG/ML (26-388); FREE T4 1.18 NG/DL (0.76-1.46); GLOMERULAR FILTRATION RATE > 60.0 (>42); GLUCOSE, FASTING 182 MG/DL (70-100); HDL CHOLESTEROL 36 MG/DL (>40); IRON (FE) 49 UG/DL (65-175); LDL CHOLESTEROL 45.6 MG/DL (<100); NON-HDL-C 74 MG/DL; POTASSIUM SERUM 4.2 MEQ/L (3.5-5.1); SODIUM LEVEL 144 MEQ/L (136-145); TOTAL IRON BINDING CAPACITY 196 UG/DL (250-450); TOTAL PROTEIN 6.8 GM/DL (6.4-8.2); TRIGLYCERIDES LEVEL 142 MG/DL (<150)
[2017-08-30 18:31] LABS: ESTIMATED AVERAGE GLUCOSE 174 MG/DL (60-110); HEMOGLOBIN A1c 7.7 %
== END ==
LOC: M SFHCCAPE 13:37
DX: D50.9 Iron deficiency anemia, unspecified (principal); E78.2 Mixed hyperlipidemia; E11.00 Type 2 diabetes mellitus with hyperosmolarity without nonketotic hyperglycemic-hyperosmolar coma (NKHHC)
CPT/HCPCS: 83550

== ENCOUNTER → 2017-11-29 | Outpatient (REF) | payer MEDICARE ==
[2017-11-29 18:31] LABS: BASO % 0.4 % (0.0-1.0); EOS # 0.1 10^3/uL (0.0-0.50); EOS % 0.7 % (0.0-3.0); HEMATOCRIT 44.6 % (42.0-52.0); HEMOGLOBIN 13.8 g/dl (13.5-17.5); IMMATURE GRANULOCYTE % 0.3 % (0-3.0); LYMPH # 1.6 10^3/uL (1.5-4.5); LYMPH % 20.7 % (24.0-44.0); MEAN CORPUSCULAR HEMOGLOBIN 29.1 pg (27.0-33.0); MEAN CORPUSCULAR HGB CONC 30.9 g/dl (32.0-36.5); MEAN CORPUSCULAR VOLUME 93.9 fl (80.0-96.0); MONO # 0.7 10^3/uL (0.0-0.8); MONO % 8.8 % (0.0-5.0); NEUTROPHILS # 5.2 10^3/uL (1.8-7.7); NEUTROPHILS % 69.1 % (36.0-66.0); PLATELET COUNT, AUTOMATED 346 10^3/uL (150-450); RED BLOOD COUNT 4.75 10^6/uL (4.30-6.10); RED CELL DISTRIBUTION WIDTH 12.5 % (11.5-14.5); WHITE BLOOD COUNT 7.5 10^3/uL (4.0-10.0)
[2017-11-29 20:47] LABS: ALBUMIN/GLOBULIN RATIO 1.08 (1.00-1.93); ALKALINE PHOSPHATASE 89 U/L (45-117); ALT/SGPT 14 U/L (12-78); ANION GAP 10 MEQ/L (8-16); AST/SGOT 11 U/L (7-37); BILIRUBIN,TOTAL 0.6 MG/DL (0.2-1.0); BLOOD UREA NITROGEN 14 MG/DL (7-18); CALCIUM LEVEL 8.8 MG/DL (8.8-10.2); CARBON DIOXIDE LEVEL 32 MEQ/L (21-32); CHLORIDE LEVEL 101 MEQ/L (98-107); CHOLESTEROL LEVEL 116 MG/DL (<200); CHOLESTEROL RISK RATIO 3.052 (<5); CREATININE FOR GFR 1.01 MG/DL (0.70-1.30); FERRITIN 17 NG/ML (26-388); GLOMERULAR FILTRATION RATE > 60.0 (>42); GLUCOSE, FASTING 150 MG/DL (70-100); HDL CHOLESTEROL 38 MG/DL (>40); IRON (FE) 49 UG/DL (65-175); LDL CHOLESTEROL 51 MG/DL (<100); NON-HDL-C 78 MG/DL; PERCENT SATURATION 20.1 % (19.7-50.0); POTASSIUM SERUM 3.8 MEQ/L (3.5-5.1); SODIUM LEVEL 143 MEQ/L (136-145); TOTAL IRON BINDING CAPACITY 244 UG/DL (250-450); TOTAL PROTEIN 7.7 GM/DL (6.4-8.2); TRIGLYCERIDES LEVEL 133 MG/DL (<150)
[2017-11-29 21:44] LABS: ESTIMATED AVERAGE GLUCOSE 143 MG/DL (60-110); HEMOGLOBIN A1c 6.6 %
== END ==
LOC: M SFHCCAPE 06:56
DX: D50.9 Iron deficiency anemia, unspecified (principal); E11.00 Type 2 diabetes mellitus with hyperosmolarity without nonketotic hyperglycemic-hyperosmolar coma (NKHHC)
CPT/HCPCS: 83550

== ENCOUNTER → 2018-08-16 | Outpatient (CLI) | payer MEDICARE ==
[~2018-08-16] MED LIST changes: -ASPI1TAB PO; +ASPI81TA26 PO; +E-Z-GAS II EFFERVESCENT PACKET (SODIUM BICARB./CITRIC ACID/SIMETHICONE) As Ordered ONE; +E-Z-HD 98% w/w 340GM SUSP BTL As Ordered ONE; +FLOM0.4C39 PO; -FLOM5CAP PO; +LISI40TA PO; -LISI40TAB PO
--- NOTE | 2018-08-17 09:08 | REP ---
Examination Requested: Esophagram Barium Swallow Reason For Exam/Comment: Dysphasia Esophagram: The procedure was performed KG Stewart, under the direct supervision of Dr. Ardon. The images were reviewed with Dr. Ardon. A single PA chest x-ray is submitted as a component engineer film. The superior mediastinal structures are midline. The heart size is within normal limits. The lungs are clear. Liquid barium was given in the erect position, in order to perform the examination. During the oral and pharyngeal stages of the examination aspiration with coughing was observed. The exam was immediately ended making the evaluation of the distal esophagus extremely limited. Esophageal transport is efficient and there is no stricture noted. Impression: 1. Limited exam due to aspiration of barium. 0.3 minutes of fluoroscopy time was utilized for this procedure. Reviewed by KG Romeo 08/16/2018 05:32 P Electronically Signed by Erick Ardon MD 08/17/2018 08:58 A
== END ==
LOC: M RAD 09:17
PROVIDERS: ATTEND Internal Medicine Gastroenterology
DX: R13.10 Dysphagia, unspecified (principal)

== ENCOUNTER → 2018-08-23 | Outpatient (CLI) | payer MEDICARE ==
[~2018-08-23] MED LIST changes: +BARIUM SULFATE 700 MG TABLET (E-Z-DISK) As Ordered ONE; -E-Z-GAS II EFFERVESCENT PACKET (SODIUM BICARB./CITRIC ACID/SIMETHICONE) As Ordered ONE; -E-Z-HD 98% w/w 340GM SUSP BTL As Ordered ONE; +VARIBAR NECTAR 40% w/v 240ML SUSP BTL As Ordered ONE; +VARIBAR PUDDING 40% w/v 230ML TUBE As Ordered ONE
--- NOTE | 2018-08-23 14:01 | NUR ---
Pt referred for MBSS d/t c/o globus sensation w/ dry consistencies. During exam, pt was given trials of thin liquids, nectar thick liquids, pureed solids, soft solids, and barium tablet. Pt demonstrated mild pharyngeal phase dysphagia characterized by pooling of residual bolus in valleculae and pyriforms bilaterally, penetration of thin liquids w/ consecutive straw sips, delayed swallow, and decreased epiglottic inversion. Pt also demonstrated decreased sensation of pharynx, as he required verbal cues to clear pharyngeal residuals. Pt was unable to pass barium tablet w/ liquid wash. Recommend that pt continue current diet as tolerated w/ use of extra sauce/condiments/gravies, as he benefits from slick/moist consistencies. Recommend use of multiple, effortful swallows per bolus, and liquid wash to clear pharyngeal residuals. Recommend that pt implement use of small sips and chin tuck strategy w/ liquids. Pt was also educated on use of puree assist (i.e., applesauce) to swallow medications. A referral to [facility] for outpatient dysphagia tx is indicated for further compensatory strategy training and exercises for laryngeal elevation and strengthening. Addendum: 08/23/[address] [facility] Amended: Links added.
--- NOTE | 2018-08-23 16:34 | REP ---
MODIFIED BARIUM SWALLOW: Modified barium swallow is performed in conjunction with the speech pathologist. I performed fluoroscopy and obtained fluoroscopic images. In the lateral projection barium materials were administered to the patient, of varying consistencies. There was laryngeal penetration with thin liquid but no genevieve aspiration. With pudding material there was some pooling in the vallecula. There was mild oropharyngeal reflux. Please refer to the speech pathologist report for further details. 2.4 minutes of fluoroscopy time utilized. Electronically Signed by Erick Ardon MD 08/23/2018 04:52 P
== END ==
LOC: M RAD 10:48
PROVIDERS: ATTEND Internal Medicine Gastroenterology
DX: R13.10 Dysphagia, unspecified (principal)

== ENCOUNTER 2018-09-07 13:35 | Outpatient (RCR) | payer MEDICARE ==
[~2018-09-07 13:35] MED LIST changes: -BARIUM SULFATE 700 MG TABLET (E-Z-DISK) As Ordered ONE; -E-Z-PAQUE 96% w/w SUSP 176GM BTL As Ordered ONE; -VARIBAR NECTAR 40% w/v 240ML SUSP BTL As Ordered ONE; -VARIBAR PUDDING 40% w/v 230ML TUBE As Ordered ONE
--- NOTE | 2018-09-07 14:54 | NUR ---
Recommend pt continue current diet as tolerated w/ self-modifications to avoid consistencies which cause globus sensation. Level 3 diet provided as guideline of soft consistencies. Recommend using extra sauces/gravies/condiments, small bite/sip, liquid wash, alternate bite/sip, and chin tuck as compensatory strategies. Recommend dysphagia tx targeting laryngeal elevation & strengthening exercises. Addendum: 09/07/[address] [facility] Amended: Links added.
[2018-09-17] MEDS ORDERED: PIOG1TAB37 PO (13:06)
== END 2018-09-09 | disposition home or self-care (01) ==
LOC: M ST 13:35
PROVIDERS: ATTEND Internal Medicine Gastroenterology
DX: R13.13 Dysphagia, pharyngeal phase (principal)

== ENCOUNTER → 2018-09-17 | Outpatient (CLI) | payer MEDICARE ==
[~2018-09-17] MED LIST changes: +PIOG1TAB37 PO
--- NOTE | 2018-09-17 16:41 | REP ---
Skeletal survey: 17 views. History: Monoclonal gammopathy. No comparison study. Findings: Frontal and lateral views of the skull show no bony destructive lesion. AP and lateral views of the cervical spine show mild degenerative disc disease. No bony destructive lesion or collapse is seen. AP views of each humerus and bilateral femurs show a small subcortical cyst formation and osteoarthritis about the left hip. No lytic bony destructive lesion is suspected. Thoracic and lumbar spine vertebral body heights are preserved. There is multilevel degenerative disc disease in both segments of the spine. No bony destructive rib lesion is appreciated. There is evidence suggesting a hiatal hernia. The left hemidiaphragm is slightly elevated. There are metallic densities in the prostate consistent with metallic seeds. There is retained diverticular barium adjacent to the right colon. No pelvic destructive lesion is seen. Impression: No lytic lesions suggestive of myeloma. Degenerative changes. No acute bony abnormalities seen. Electronically Signed by Arsalan Jameson MD 09/17/2018 05:22 P
== END ==
LOC: M RAD 14:15 → M LAB 14:15
PROVIDERS: ATTEND Internal Medicine
DX: D47.2 Monoclonal gammopathy (principal)

== ENCOUNTER 2018-09-21 12:56 | Outpatient (RCR) | payer MEDICARE | END 2018-10-10 | LOC: M ST 12:56 | PROVIDERS: ATTEND Internal Medicine Gastroenterology | DX: R13.13 Dysphagia, pharyngeal phase (principal) ==

== ENCOUNTER → 2018-09-21 | Outpatient (REF) | payer MEDICARE ==
[2018-09-21 15:27] LABS: URINE TOTAL PROTEIN 23.4 MG/DL (0-12)
[2018-09-21 15:39] LABS: TOTAL PROTEIN,RANDOM URINE 23.1 MG/DL (0.0-12.0); URINE TOTAL PROTEIN 23.1 MG/DL (0-12)
[2018-09-27 12:29] LABS: UPEP INTERPRETATION 2 M-SPIKES IN GAMMA; URINE VOLUME RANDOM ML
[2018-09-27 12:35] LABS: IMMUNOTYPE URINE KAPPA ABNORMAL (NORMAL)
[2018-09-29 06:51] LABS: TOTAL VOLUME, URINE 1000 ML
== END ==
LOC: M LAB REF 14:44
PROVIDERS: ATTEND Internal Medicine
DX: D47.2 Monoclonal gammopathy (principal)

== ENCOUNTER → 2018-10-10 | Outpatient (REF) | payer MEDICARE ==
[2018-10-10 13:36] LABS: BLOOD UREA NITROGEN 15 MG/DL (7-18); CPK CREATINE PHOSPHOKINASE 128 U/L (39-308); CREATININE FOR GFR 0.83 MG/DL (0.70-1.30); GLOMERULAR FILTRATION RATE > 60.0 (>42); RHEUMATOID FACTOR QUANT < 10.0 IU/ML (<15.0); TOTAL PROTEIN 7.4 GM/DL (6.4-8.2)
[2018-10-10 13:45] LABS: FOLATE 14.1 NG/ML (>5.4); VITAMIN B12 LEVEL 391 PG/ML (247-911)
[2018-10-11 10:34] LABS: ALBUMIN % 52.7 % (55.8-66.1); ALPHA-1-GLOBULINS 0.37 GM/DL (0.17-0.41); ALPHA-2-GLOBULINS 0.95 GM/DL (0.42-0.99); ALPHA-2-GLOBULINS % 12.9 % (7.1-11.8); BETA-1-GLOBULINS 0.37 GM/DL (0.28-0.60); BETA-2-GLOBULINS 0.36 GM/DL (0.19-0.55); BETA-2-GLOBULINS % 4.9 % (3.2-6.5); GAMMA GLOBULIN % 19.5 % (11.1-18.8); GAMMA GLOBULINS 1.44 GM/DL (0.65-1.58)
[2018-10-19 00:11] LABS: ACETYLCHOLINE RCPTOR BINDING A < 0.03 nmol/L (0.00-0.24); ACETYLCHOLINE RCPTOR BLOCK AB 21 % (0-25); ACETYLCHOLINE RCPTOR MODULATIN <12 % (0-20); ANTINUCLEAR ANTIBODIES DIRECT Negative (Negative); CERULOPLASMIN 24.5 mg/dL (16.0-31.0); COPPER PLASMA 116 ug/dL (72-166); LEAD BLOOD ADULT 1 ug/dL (0-4); Lyme Disease IgG/IgM Antibodie <0.91 ISR (0.00-0.90); Lyme Disease IgM Ab Quantitati <0.80 index (0.00-0.79); MERCURY LEVEL None Detected ug/L (0.0-14.9); VGCC ANTIBODY Negative (Negative); VITAMIN B1 LEVEL WHOLE BLOOD 179.2 nmol/L (66.5-200.0); VITAMIN B6,PYRIDOXAL PHOSPHATE 3.3 ug/L (5.3-46.7); VITAMIN E(GAMMA TOCOPHEROL) 0.7 mg/L (0.5-4.9)
== END ==
LOC: M LABNEURO 10:02
PROVIDERS: ATTEND Psychiatry & Neurology Neurology
DX: R13.10 Dysphagia, unspecified (principal); R53.83 Other fatigue

== ENCOUNTER → 2018-10-11 | Outpatient (CLI) | payer MEDICARE ==
[~2018-10-11] MED LIST changes: +GASTROGRAFIN SOLUTION 30ML (Q9963) As Ordered ONE; +ISOVUE-370 76% 100ML VIAL (Q9967) As Ordered ONE
--- NOTE | 2018-10-11 12:36 | REP ---
CT of the chest with IV contrast: There are no comparisons. There are no infiltrates or pleural effusions. There are no lung masses or nodules. There is no mediastinal lymph node enlargement or mass. There is no hilar lymph node enlargement or mass. There is no axillary lymph node enlargement or mass. The thoracic aorta is unremarkable. Cardiac size is normal. There is no pericardial effusion. There is a 8.4 cm hiatal hernia. There are no lytic, blastic or destructive skeletal changes. Impression: Hiatal hernia, otherwise negative CT study of the chest. Electronically Signed by Erick Fierro MD 10/11/2018 12:28 P
--- NOTE | 2018-10-11 12:52 | REP ---
CT of the abdomen without IV contrast and CT of the abdomen and pelvis with IV contrast. There is bowel contrast on both phases of the study. There is a dilated scan of the abdomen with IV and oral contrast. Comparison 08/12/2011. There is a hiatal hernia measuring 8.2 cm in diameter. This is unchanged from the comparison study. The hepatic parenchyma is homogeneous. There is a 1 cm lucency at the inferior tip of the hepatic right lobe, non specific, likely a cyst, not deftly identified on the prior study without IV contrast. The gallbladder, pancreas are unremarkable. The spleen appears enlarged and measures 14 x 13 by 8 cm. There are no focal splenic lesions. The spleen appears unchanged in size from the prior study. The adrenals, kidneys and abdominal aorta are unremarkable. There is no periaortic adenopathy or mass. The bowel and mesentery are unremarkable. There is no ascites. Pelvis: There is a ring-shaped calcification adjacent to the cecum. This may represent old calcified appendagitis. It was not present on the prior study. There are multiple small densities in the prostate bed, not present previously, possibly iridium seeds. There is no adenopathy or ascites. There are no lytic, blastic or destructive skeletal changes. There is degenerative disc disease throughout the lumbar spine. There is bilateral hip osteoarthritis. Impression: Splenomegaly, unchanged. No adenopathy or mass. No ascites. 1 cm hypodensity in the inferior tip of the hepatic right lobe, likely a cyst. Iridium seeds in the prostate. Electronically Signed by Erick Fierro MD 10/11/2018 12:43 P
== END ==
LOC: M RAD 10:51
PROVIDERS: ATTEND Internal Medicine Hematology & Oncology
DX: C88.0 Waldenstrom macroglobulinemia (principal); R63.4 Abnormal weight loss

== ENCOUNTER → 2018-10-15 | Outpatient (REF) | payer MEDICARE ==
[~2018-10-15] MED LIST changes: -GASTROGRAFIN SOLUTION 30ML (Q9963) As Ordered ONE; -ISOVUE-370 76% 100ML VIAL (Q9967) As Ordered ONE; +OMEP-218 PO
== END ==
LOC: M LAB REF 16:41
PROVIDERS: ATTEND Surgery
DX: D22.5 Melanocytic nevi of trunk (principal)

== ENCOUNTER → 2018-10-17 | Outpatient (CLI) | payer MEDICARE ==
--- NOTE | 2018-10-18 00:14 | REP ---
Examination Requested: Cookie Swallow Reason For Exam: Dysphasia The procedure was performed by KG Stewart, under the direct supervision of Dr. Ardon. The procedure was performed with Shanti Gallego from speech pathology present. 5 ml aliquots of thin, pudding, mixed fruit, soft food, hard food and pill consistency barium was administered. No penetration or aspiration was was visualized throughout the course of the exam. The detailed report of this examination will be provided by speech pathology. 2.3 minutes of fluoroscopy time was utilized for this procedure. Reviewed by KG Romeo 10/17/2018 11:12 A Electronically Signed by Erick Ardon MD 10/18/2018 12:05 A
== END ==
LOC: M ST 10:06
PROVIDERS: ATTEND Internal Medicine Gastroenterology
DX: R13.12 Dysphagia, oropharyngeal phase (principal)

== ENCOUNTER → 2018-10-30 | Outpatient (CLI) | payer MEDICARE ==
--- NOTE | 2018-10-30 19:50 | REP ---
Whole body PET CT scan for evaluation of lymphoma: Comparison studies are the chest CT and the abdomen/pelvis CT dated 10/11/2018. Whole-body scanning is performed from skull base to the upper thighs. Neck and supraclavicular areas: There is hypermetabolic uptake in a normal size posterior triangle cervical lymph node on the right, the standard uptake value measuring 6.30. There are no other hypermetabolic foci in the neck or supraclavicular areas. Chest: There is borderline hypermetabolic focus in the soft tissues anterior to the left glenohumeral joint, likely ligamentous uptake. The standard uptake value measures 2.99. There are no other hypermetabolic foci in the chest. Abdomen, pelvis and upper thighs: There are no hypermetabolic foci. Specifically there are no hepatic or splenic foci. There are no periaortic, mesenteric or pelvic foci. There is no uptake related to the small hypodensity noted inferiorly in the right lobe of the liver on the comparison CT. There are iridium seeds in the prostate, unchanged. There is no prostate hypermetabolic uptake. On the CT accompanying of the PET scan there is a ring-shaped calcification adjacent to the cecum, unchanged from the comparison CT, likely old healed appendagitis. Impression: There is hypermetabolic uptake in a normal size posterior triangle cervical lymph node on the right. There is borderline hypermetabolic uptake in soft tissues anterior to the left glenohumeral joint, likely ligamentous uptake. There are no other hypermetabolic foci. The study is performed with 8.21 mCi of F 18 FDG, Electronically Signed by Erick Fierro MD 10/30/2018 07:42 P
== END ==
LOC: M PLARAD 13:31
PROVIDERS: ATTEND Internal Medicine
DX: C85.99 Non-Hodgkin lymphoma, unspecified, extranodal and solid organ sites (principal)
CPT/HCPCS: 78815; A9552

== ENCOUNTER → 2018-11-14 | Outpatient (REF) | payer MEDICARE | LOC: M LAB REF 14:05 | PROVIDERS: ATTEND Surgery | DX: D22.5 Melanocytic nevi of trunk (principal) ==

== ENCOUNTER → 2018-12-03 | Outpatient (REF) | payer MEDICARE | LOC: M SFHCCAPE 16:05 | PROVIDERS: ATTEND Physician Assistant | DX: S31.809A Unspecified open wound of unspecified buttock, initial encounter (principal); Z53.8 Procedure and treatment not carried out for other reasons ==

== ENCOUNTER → 2018-12-04 | Outpatient (REF) | payer MEDICARE | LOC: M SFHCCAPE 09:57 | PROVIDERS: ATTEND Physician Assistant | DX: S31.809A Unspecified open wound of unspecified buttock, initial encounter (principal); W18.30XA Fall on same level, unspecified, initial encounter; Y92.009 Unspecified place in unspecified non-institutional (private) residence as the place of occurrence of the external cause ==

== ENCOUNTER → 2019-10-24 | Outpatient (REF) | payer BC ==
[~2019-10-24] MED LIST changes: +ASPI81TA86 PO; +ATEN25TA PO; +ATEN50TA2 PO; +ATOR40TA75 PO; +B-12100011 SL; +BACITAB PO; +CEFP200T PO; +DOXY-350 PO; +LASI20TA3 PO; +LASI40TA9 PO; +LISI-538 PO; +LISI2.5T2 PO; +POTA10CA32 PO; +PRIL20TA2 PO; +PYRI50TA40 PO; +PYRI60TA2 PO; +VITA500C24 PO; +XARE20TA PO; +ZINC1TAB2 PO
[2019-11-28 07:00] LABS: BASO % 0.3 % (0.0-1.0); EOS % 0.6 % (0.0-3.0); HEMATOCRIT 39.3 % (42.0-52.0); HEMOGLOBIN 12.2 g/dl (13.5-17.5); LYMPH # 1.1 10^3/uL (1.5-5.0); MEAN CORPUSCULAR HEMOGLOBIN 30.3 pg (27.0-33.0); MEAN CORPUSCULAR VOLUME 97.5 fl (80.0-96.0); MONO # 0.7 10^3/uL (0.0-0.8); MONO % 9.9 % (0.0-5.0); NEUTROPHILS # 4.8 10^3/uL (1.5-8.5); NEUTROPHILS % 71.6 % (36.0-66.0); PLATELET COUNT, AUTOMATED 244 10^3/uL (150-450); RED BLOOD COUNT 4.03 10^6/uL (4.30-6.10); WHITE BLOOD COUNT 6.6 10^3/uL (4.0-10.0)
[2019-12-11 19:33] LABS: ALBUMIN 3.5 GM/DL (3.2-5.2); ALT/SGPT 38 U/L (12-78); BILIRUBIN,TOTAL 1.1 MG/DL (0.2-1.0); BLOOD UREA NITROGEN 15 MG/DL (7-18); CALCIUM LEVEL 8.6 MG/DL (8.8-10.2); CARBON DIOXIDE LEVEL 32 MEQ/L (21-32); CHLORIDE LEVEL 106 MEQ/L (98-107); CHOLESTEROL LEVEL 104 MG/DL (<200); CREATININE FOR GFR 0.95 MG/DL (0.70-1.30); FREE T4 1.18 NG/DL (0.76-1.46); GLOMERULAR FILTRATION RATE > 60.0 (>42); GLUCOSE, FASTING 193 MG/DL (70-100); HDL CHOLESTEROL 40 MG/DL (>40); LDL CHOLESTEROL 42 MG/DL (<100); NON-HDL-C 64 MG/DL; NT-PRO BNP 5306 PG/ML (<450); POTASSIUM SERUM 3.6 MEQ/L (3.5-5.1); SODIUM LEVEL 142 MEQ/L (136-145); TOTAL PROTEIN 6.8 GM/DL (6.4-8.2); TRIGLYCERIDES LEVEL 111 MG/DL (<150)
== END ==
LOC: M SFHCCLAY 09:36
PROVIDERS: ATTEND Physician Assistant
DX: I50.20 Unspecified systolic (congestive) heart failure (principal); I48.91 Unspecified atrial fibrillation

== ENCOUNTER 2019-11-13 14:51 | Emergency (ER) | payer MEDICARE ==
[~2019-11-13] VITALS: Ht 185.4 cm; Wt 81.3 kg
[~2019-11-13 14:51] MED LIST changes: -LASI40TA9 PO
[2019-11-13] MEDS ORDERED: FUROSEMIDE 40MG/4ML VIAL (J1940) IV ONE (15:45)
[2019-11-13 16:13] LABS: BASO % 0.2 % (0.0-1.0); EOS % 0.4 % (0.0-3.0); HEMATOCRIT 43.9 % (42.0-52.0); HEMOGLOBIN 13.9 g/dl (13.5-17.5); LYMPH # 1.1 10^3/uL (1.5-5.0); MEAN CORPUSCULAR HGB CONC 31.7 g/dl (32.0-36.5); MEAN CORPUSCULAR VOLUME 94.6 fl (80.0-96.0); MONO # 0.6 10^3/uL (0.0-0.8); MONO % 6.9 % (0.0-5.0); NEUTROPHILS # 6.3 10^3/uL (1.5-8.5); NEUTROPHILS % 77.8 % (36.0-66.0); PLATELET COUNT, AUTOMATED 267 10^3/uL (150-450); RED BLOOD COUNT 4.64 10^6/uL (4.30-6.10); WHITE BLOOD COUNT 8.1 10^3/uL (4.0-10.0)
--- NOTE | 2019-11-13 16:13 | REPVR ---
PROCEDURE INFORMATION: Exam: XR Chest, 1 View Exam date and time: 11/13/2019 3:55 PM Age: 78 years old Clinical indication: Other: Weakness; Additional info: Shortness of breath TECHNIQUE: Imaging protocol: XR of the chest Views: 1 view. COMPARISON: CR PORTABLE CHEST X-RAY 09/29/2019 7:53 AM FINDINGS: Lungs: There is prominence of bronchovascular markings bilaterally. There is no infiltrate. Pleural space: Unremarkable. No pleural effusion. No pneumothorax. Heart/Mediastinum: Unremarkable. No cardiomegaly. Bones/joints: Unremarkable. IMPRESSION: Suspect bilateral interstitial lung disease. Electronically signed by: Nabor Martinez On 11/13/2019 16:13:16 PM
[2019-11-13] MEDS ORDERED: XARE20TA PO (16:31)
[2019-11-13 16:39] LABS: CK-MB VALUE MASS 3.5 NG/ML (<3.6); CPK CREATINE PHOSPHOKINASE 76 U/L (39-308); MAGNESIUM LEVEL 2.2 MG/DL (1.8-2.4); MB/CK RELATIVE INDEX 4.61 (< OR =4); NT-PRO BNP 5671 PG/ML (<450); TROPONIN I < 0.02 NG/ML (< 0.10)
[2019-11-13 16:43] LABS: ALBUMIN 3.6 GM/DL (3.2-5.2); ALT/SGPT 28 U/L (12-78); BILIRUBIN,TOTAL 0.6 MG/DL (0.2-1.0); BLOOD UREA NITROGEN 16 MG/DL (7-18); CALCIUM LEVEL 9.2 MG/DL (8.8-10.2); CARBON DIOXIDE LEVEL 28 MEQ/L (21-32); CHLORIDE LEVEL 108 MEQ/L (98-107); CREATININE FOR GFR 0.97 MG/DL (0.70-1.30); GLOMERULAR FILTRATION RATE > 60.0 (>42); GLUCOSE, FASTING 175 MG/DL (70-100); POTASSIUM SERUM 4.2 MEQ/L (3.5-5.1); SODIUM LEVEL 141 MEQ/L (136-145); TOTAL PROTEIN 7.6 GM/DL (6.4-8.2)
[2019-11-13] MEDS ORDERED: LASI40TA9 PO (17:54)
[2019-11-13 18:04] VITALS: BP 167/90
--- NOTE | 2019-11-21 14:04 | ECGEPIP ---
[facility] - ED Test Date: 2019-11-13 Pat Name: MATTHEW BUTTS Department: Room: - Gender: Male Manager Cardiology: nr : [id number] Requested By: MIKA Almonte Order Number: [id number] Reading MD: Maddison Scott Measurements Intervals Vaughn Rate: 80 P: 48 NM: 173 QRS: -58 QRSD: 134 T: 26 QT: 425 QTc: 492 Interpretive Statements SINUS RHYTHM WITH SINUS ARRHYTHMIA RIGHT BUNDLE BRANCH BLOCK LEFT ANTERIOR FASCICULAR BLOCK ABNORMAL ECG SEE SCANNED DOWNTIME REPORT
== END 2019-11-13 18:04 | disposition home or self-care (01) ==
LOC: M ED 14:51
DX: I50.9 Heart failure, unspecified (principal); E11.9 Type 2 diabetes mellitus without complications; I11.0 Hypertensive heart disease with heart failure; E78.5 Hyperlipidemia, unspecified; I48.91 Unspecified atrial fibrillation; N40.0 Benign prostatic hyperplasia without lower urinary tract symptoms; G70.00 Myasthenia gravis without (acute) exacerbation; C88.0 Waldenstrom macroglobulinemia; K21.9 Gastro-esophageal reflux disease without esophagitis; Z79.899 Other long term (current) drug therapy; Z79.84 Long term (current) use of oral hypoglycemic drugs; Z79.82 Long term (current) use of aspirin; Z79.01 Long term (current) use of anticoagulants
CPT/HCPCS: 71045; 80053; 82550; 82553; 83735; 83880; 84484; 85025; 93005; 96374; 99284; J1940

== ENCOUNTER → 2019-11-21 | Outpatient (REF) | payer MEDICARE ==
[~2019-11-21] MED LIST changes: +LASI40TA9 PO
[2019-11-21 14:24] LABS: ALBUMIN 3.5 GM/DL (3.2-5.2); BILIRUBIN,DIRECT 0.2 MG/DL (0.0-0.2); BILIRUBIN,TOTAL 0.6 MG/DL (0.2-1.0); BLOOD UREA NITROGEN 18 MG/DL (7-18); CALCIUM LEVEL 8.9 MG/DL (8.8-10.2); CARBON DIOXIDE LEVEL 32 MEQ/L (21-32); CHLORIDE LEVEL 106 MEQ/L (98-107); CREATININE FOR GFR 0.98 MG/DL (0.70-1.30); GLOMERULAR FILTRATION RATE > 60.0 (>42); GLUCOSE, FASTING 217 MG/DL (70-100); MAGNESIUM LEVEL 2.1 MG/DL (1.8-2.4); NT-PRO BNP 2806 PG/ML (<450); POTASSIUM SERUM 3.8 MEQ/L (3.5-5.1); SODIUM LEVEL 143 MEQ/L (136-145)
== END ==
LOC: EEVIPCON 12:02 → M LABDRAWC 12:02
PROVIDERS: ATTEND Internal Medicine Cardiovascular Disease
DX: I50.42 Chronic combined systolic (congestive) and diastolic (congestive) heart failure (principal)

== ENCOUNTER 2020-07-21 15:36 | Inpatient (IN) | payer MEDICARE ==
[~2020-07-21] VITALS: Ht 185.4 cm; Wt 75.9 kg
[~2020-07-21 15:36] MED LIST changes: +HYDR-3490 PO; -HYDR25TAB PO; -LISI-538 PO; +LISI20TA33 PO; -LISI40TA PO; +LISI40TA4 PO
[2020-07-21] MEDS ORDERED: PANTOPRAZOLE 40MG VIAL (C9113 PER 1) IV ONE (17:10)
[2020-07-21] MEDS ORDERED: NS 500 ML IV ONE (17:10)
[2020-07-21 18:09] LABS: HEMATOCRIT 37.3 % (42.0-52.0); HEMOGLOBIN 11.2 g/dl (13.5-17.5); MEAN CORPUSCULAR HEMOGLOBIN 28.4 pg (27.0-33.0); MEAN CORPUSCULAR VOLUME 94.7 fl (80.0-96.0); PLATELET COUNT, AUTOMATED 320 10^3/uL (150-450); RED BLOOD COUNT 3.94 10^6/uL (4.30-6.10); WHITE BLOOD COUNT 6.6 10^3/uL (4.0-10.0)
[2020-07-21] MEDS ORDERED: NS 1,000 ML IV ONE (18:20)
[2020-07-21 18:31] LABS: INR 1.17; PROTHROMBIN TIME 15.2 SECONDS (12.5-14.3)
[2020-07-21 18:32] LABS: PARTIAL THROMBOPLASTIN TIME 34.6 SECONDS (24.2-38.5)
[2020-07-21 18:44] LABS: ALT/SGPT 18 U/L (12-78); BILIRUBIN,DIRECT 0.2 MG/DL (0.0-0.2); BILIRUBIN,TOTAL 0.4 MG/DL (0.2-1.0); BLOOD UREA NITROGEN 19 MG/DL (7-18); CALCIUM LEVEL 8.7 MG/DL (8.8-10.2); CARBON DIOXIDE LEVEL 29 MEQ/L (21-32); CHLORIDE LEVEL 106 MEQ/L (98-107); CREATININE FOR GFR 1.08 MG/DL (0.70-1.30); GLOMERULAR FILTRATION RATE > 60.0 (>42); GLUCOSE, FASTING 160 MG/DL (70-100); LIPASE 17 U/L (73-393); POTASSIUM SERUM 4.3 MEQ/L (3.5-5.1); SODIUM LEVEL 140 MEQ/L (136-145); TOTAL PROTEIN 6.4 GM/DL (6.4-8.2)
[2020-07-21 18:59] LABS: ATYPICAL LYMPH 2 % (0-5); EOSINOPHILS 2 % (0-3); LYMPHOCYTES 19 % (16-44); METAMYELOCYTES 1 % (0-0); MONOCYTES 11 % (0-5); NEUTROPHILS 57 % (28-66)
[2020-07-21 19:00] LABS: HYPOCHROMASIA 1+; PLATELET ESTIMATE NORMAL (NORMAL)
[2020-07-21] MEDS: GASTROGRAFIN SOLUTION 30ML PO SCH ×2 (19:08→19:23)
[2020-07-21 20:07] LABS: RSV AMPLIFICATION NEGATIVE (NEGATIVE)
[2020-07-21] MEDS ORDERED: ISOVUE-370 76% 100ML VIAL As Ordered ONE (20:32)
[2020-07-21] MEDS ORDERED: ATORVASTATIN 20 MG TAB PO SCH (21:00)
[2020-07-21 21:05] LABS: APPEARANCE, URINE CLOUDY (CLEAR); BACTERIA, URINE AUTO 1+ (NEGATIVE); BILIRUBIN, URINE AUTO NEGATIVE (NEGATIVE); BLOOD, URINE BLOOD 3+ (NEGATIVE); COLOR, URINE YELLOW (YELLOW); GLUCOSE, URINE (UA) AUTO 3+ mg/dL (NEGATIVE); KETONE, URINE AUTO NEGATIVE (NEGATIVE); LEUKOCYTE ESTERASE, URINE AUTO 3+ (NEGATIVE); MUCUS, URINE SMALL (NEGATIVE); NITRITE, URINE AUTO NEGATIVE (NEGATIVE); PROTEIN, URINE AUTO 1+ mg/dL (NEGATIVE); RBC, URINE AUTO 63 /HPF (0-3); SPECIFIC GRAVITY URINE AUTO 1.016 (1.002-1.035); SQUAMOUS EPITHELIAL CELL UR AU 12 /HPF (0-6); UROBILINOGEN, URINE AUTO 0.2 mg/dL (0.0-2.0); WBC, URINE AUTO 54 /HPF (0-3)
--- NOTE | 2020-07-21 21:26 | REPVR ---
PROCEDURE INFORMATION: Exam: CT Abdomen And Pelvis With Contrast Exam date and time: 07/21/2020 8:45 PM Age: 79 years old Clinical indication: Other: Rectal bleeding TECHNIQUE: Imaging protocol: Computed tomography of the abdomen and pelvis with contrast. Radiation optimization: All CT scans at this facility use at least one of these dose optimization techniques: automated exposure control; mA and/or kV adjustment per patient size (includes targeted exams where dose is matched to clinical indication); or iterative reconstruction. Contrast material: ISOVUE 370; Contrast volume: 100 ml; Contrast route: INTRAVENOUS (IV); Other contrast: Oral, gastrographin, 300; COMPARISON: PT PET/CT Skull/mid thigh 10/30/2018 3:32 PM FINDINGS: Lungs: Mild bibasilar atelectasis. Mediastinal space: A moderate hiatal hernia is present. Liver: Normal. No mass. Gallbladder and bile ducts: Normal. No calcified stones. No ductal dilation. Pancreas: Normal. No ductal dilation. Spleen: There is mild to moderate splenomegaly with a maximum span of 15 centimeters. No focal abnormalities demonstrated. Adrenal glands: Normal. No mass. Kidneys and ureters: Normal. No hydronephrosis. Stomach and bowel: Duodenal diverticulum. There is increased feces throughout the colon consistent with constipation. There is diffuse thickening of the wall of the colon most pronounced in the distal left sigmoid colon and rectum. Finding may be related to diverticular disease however changes secondary to chronic colitis to be excluded clinically. Suggestion of mild pericolonic inflammatory changes demonstrated at the junction of the left and sigmoid colon may represent mild uncomplicated diverticulitis or a focus of segmental colitis. Appendix: No evidence of appendicitis. Intraperitoneal space: See "Soft tissues" finding. Vasculature: Enlarged main portal vein and right and left portal veins without thrombosis, main portal vein measuring 2.3 cm maximally. The aortoiliac vessels demonstrate moderate atherosclerotic calcification. Lymph nodes: Unremarkable. No enlarged lymph nodes. Urinary bladder: Diffuse bladder wall thickening. Bladder incompletely distended. Finding most likely represents changes related to incomplete distention and or mild bladder outlet obstruction. Reproductive: The prostate gland demonstrates mild hyperplasia. Bones/joints: The spine demonstrates mild degenerative changes. Moderate central spinal stenosis L3-L4 and L4-L5. Scoliosis. Soft tissues: Left inguinal hernia. Increased density in the proximal hernia may represent fluid within the hernia sac. Incarceration be excluded clinically. IMPRESSION: 1. A moderate hiatal hernia is present. 2. There is mild to moderate splenomegaly with a maximum span of 15 centimeters. No focal abnormalities demonstrated. 3. Mild prostatic hyperplasia. 4. Left inguinal hernia. Increased density in the proximal hernia may represent fluid within the hernia sac. Incarceration be excluded clinically. 5. There is increased feces throughout the colon consistent with constipation. 6. There is diffuse thickening of the wall of the colon most pronounced in the distal left sigmoid colon and rectum. Finding may be related to diverticular disease however changes secondary to chronic colitis to be excluded clinically. Suggestion of mild pericolonic inflammatory changes demonstrated at the junction of the left and sigmoid colon may represent mild uncomplicated diverticulitis or a focus of segmental colitis. Electronically signed by: Kuldeep Small On 07/21/2020 21:25:33 PM
[2020-07-21] MEDS ORDERED: GLUCAGON INJ 1MG VIAL SC PRN (22:30)
[2020-07-21] MEDS ORDERED: AUGMENTIN 875 MG TAB PO ONE (22:30)
[2020-07-21] MEDS ORDERED: NS 1,000 ML IV SCH (22:30)
[2020-07-21] MEDS ORDERED: ACETAMINOPHEN TAB 650MG DOSE (2X325MG) PO PRN (22:30)
[2020-07-21] MEDS ORDERED: DEXTROSE 50% 50 ML SYRINGE IV PRN (22:30)
[2020-07-21] MEDS ORDERED: GLUCOSE 4GM CHEW TABLET PO PRN (22:30)
--- NOTE | 2020-07-21 22:44 | HPEPDOC ---
[facility] Medical History & Physical Date of Admission July 21, 2020 Date of Service: July 21, 2020 Primary Care Physician: LORE RIVER PA-C Attending Physician: SILVIO MILLIGAN MD History and Physical TIME OF SERVICE: 1120PM CHIEF COMPLAINT: bloody stools HISTORY OF PRESENT ILLNESS: Over the last 3 days this 79 yr old M has had several episodes of blood stools per day, that are more severe in the morning, reoccur at about noon and again around 3PM; because he has been taking diarrhea pills as the day progresses the episodes subside. He denied having abdominal pain, chest pain, dyspnea or dizziness but has recently lost weight. He came to the ER today bc he had an episode of bloody diarrhea while using a public rest room. 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 HOME MEDICATIONS: Please see below. PHYSICAL EXAMINATION: Vital Signs Date Time Temp Pulse Resp B/P (MAP) Pulse Ox O2 Delivery O2 Flow Rate FiO2 07/21/20 15:37 98.3 97 18 105/59 (74) 98 Room Air GENERAL APPEARANCE: slim build /well developed HEENT: no scleral icterus CARDIOVASCULAR: RRR/NMRG/ no LE edema LUNGS: CTAB on RA ABDOMEN: flat /soft & NT MUSCULOSKELETAL: NCAT / TRICE x 4 INTEGUMENT: not flushed or pale NEUROLOGICAL: speech not dysarthric PSYCHIATRIC: A&Ox 3 /able to understand and follow all commands LABORATORY DATA: Neutrophils (%) (Auto) , Nucleated Red Blood Cells % (auto) 0.0, Neutrophils 57, Band Neutrophils 8, Lymphocytes (Manual) 19, Monocytes (Manual) 11H, Eosinophils (Manual) 2, Metamyelocytes 1H, Atypical Lymphocytes 2, Hypochromasia 1+, Platelet Estimate NORMAL, Prothrombin Time 15.2H, Prothromb Time International Ratio 1.17, Activated Partial Thromboplast Time 34.6, Anion Gap 5L, Glomerular Filtration Rate > 60.0, Lactic Acid Level 1.4, Calcium Level 8.7L, Total Bilirubin 0.4, Direct Bilirubin 0.2, Aspartate Amino Transf (AST/SGOT) 35, Alanine Aminotransferase (ALT/SGPT) 18, Alkaline Phosphatase 96, Total Protein 6.4, Albumin 3.0L, Albumin/Globulin Ratio 0.9, Lipase 17L 07/21/20 19:17: Coronavirus (COVID-19)(PCR) NEGATIVE, Influenza Type A (RT-PCR) NEGATIVE, Influenza Type B (RT-PCR) NEGATIVE, Respiratory Syncytial Virus (PCR) NEGATIVE 07/21/20 20:48: Urine Color YELLOW, Urine Appearance CLOUDYH, Urine pH 5.0, Urine Specific [place] 1.016, Urine Protein 1+H, Urine Glucose (Auto)(UA) 3+H, Urine Ketones (Auto) NEGATIVE, Urine Blood 3+H, Urine Nitrite NEGATIVE, Urine Bilirubin NEGATIVE, Urine Urobilinogen 0.2, Urine Leukocyte Esterase (Auto) 3+H, Urine WBC (Auto) 54H, Urine RBC (Auto) 63H, Urine Hyaline Casts (Auto) 0, Urine Bacteria (Auto) 1+H, Urine Squamous Epithelial Cells 12, Urine Mucus (Auto) SMALL, Urine Sperm (Auto) IMAGING: CT abd/pelvis IMPRESSION: 1. A moderate hiatal hernia is present. 2. There is mild to moderate splenomegaly with a maximum span of 15 centimeters. No focal bnormalities demonstrated. 3. Mild prostatic hyperplasia. 4. Left inguinal hernia. Increased density in the proximal hernia may represent fluid within the hernia sac. Incarceration be excluded clinically. 5. There is increased feces throughout the colon consistent with constipation. . There is diffuse thickening of the wall of the colon most pronounced in the distal left sigmoid colon and rectum. Finding may be related to diverticular disease however changes secondary to chronic colitis to be excluded clinically. Suggestion of mild pericolonic inflammatory changes demonstrated at the junction of the left and sigmoid colon may represent mild uncomplicated diverticulitis or a focus of segmental colitis. MICROBIOLOGY: Respiratory panel & GI panel neg ASSESSMENT: is a 79 yr old w HFpEF/HFrEF, Myasthia, Walsdnstroms, HTN, A fib, NIDDM, DAPHNIE & a family hx of colon CA who presented w c/o bloody diarrhea & weight loss; he will be admitted for LGIB possibly 2/2 diverticulitis or colitis. PLAN: 1 Acute blood loss Anemia 2/2 LGIB Likely 2/2 diverticulitis or colitis vs malignancy He has a hx of DAPHNIE Plan: admit to PCU / ask RNs to place 2 large bore IVs & check orthostats / CLD w IVF / add on type & screen & iron studies / f/u Hg Q6H and keep Hg >7 / ASA and oral Iron / day time team to consider officially consulting Gen surg for EGD +/-c-scope / 2 Diverticulitis vs colitis He reports having diarrhea but the CT scan also reported constipation Plan: Metronidazole / hold loperamide / he will eventually need a c-scope 3 Tachycardia resolved Plan: Carvedilol & Sacubitril/Valsartan 4 Essential HTN Hypotension resolved Plan: Carvedilol & Sacubitril/Valsartan, Spironolactone 5 Chronic HFpEF w HFrEF (G2 & EF 35%) Plan: f/u Is & Os / daily weights / Carvedilol & Sacubitril/Valsartan, Spironolactone 6 Myasthenia Gravis Plan: Pyridostigmine Prednisone w PPI 7 Waldenstroms Macroglobulinemia Plan: f/u w Hem as scheduled 8 NIDDM Plan: f/u accuchecks / hypoglycemia protocol / sliding scale insulin / hold oral anti-glycemic / f/u A1C (target A1C is <7 to 6.5% 9 Paroxysmal Afib Plan: Rivaroxaban on hold bc of bleed DVT n/a bc of GI bleed Dispo: home after at least 2 midnights stay Home Medications Scheduled Ascorbic Acid (Vitamin C) 500 Mg Capsule, 500 MG PO BID Aspirin (Aspirin EC) 81 Mg Tablet.dr, 81 MG PO DAILY Atorvastatin Calcium (Atorvastatin Calcium) 40 Mg Tablet, 40 MG PO QHS Carvedilol (Carvedilol) 6.25 Mg Tablet, 6.25 MG PO BID Cyanocobalamin (Vitamin B-12) (B-12) 1,000 Mcg Tablet, 1,000 MCG PO DAILY Dapagliflozin Propanediol (Farxiga) 10 Mg Tablet, 10 MG PO QHS Ferrous Sulfate (Ferrous Sulfate) 325 Mg Tablet, 325 MG PO DAILY Glipizide (Glipizide) 5 Mg Tab, 10 MG PO DAILY Glipizide (Glipizide) 5 Mg Tablet, 5 MG PO QPM TAKES AT DINNER Metformin HCl (Metformin HCl) 500 Mg Tab, 1,000 MG PO DAILY Metformin HCl (Metformin HCl) 500 Mg Tablet, 500 MG PO BID DINNER AND BEDTIME Pantoprazole Sodium (Pantoprazole Sodium) 40 Mg Tablet.dr, 40 MG PO DAILY Prednisone (Prednisone) 2.5 Mg Tablet, 2.5 MG PO DAILY Pyridostigmine Petros (Pyridostigmine Petros) 60 Mg Tablet, 60 MG PO QID Pyridoxine HCl (Vitamin B6) (Vitamin B-6) 50 Mg Tablet, 50 MG PO QPM TAKES AT DINNER Rivaroxaban (Xarelto) 20 Mg Tablet, 20 MG PO QPM TAKES AT DINNER Sacubitril/Valsartan (Entresto 24 mg-26 mg Tablet) 1 Each Tablet, 1 TAB PO BID Spironolactone (Spironolactone) 25 Mg Tablet, 12.5 MG PO DAILY Zinc (Zinc) 50 Mg Tablet, 50 MG PO DAILY TAKES AT LUNCH Scheduled PRN Loperamide HCl (Anti-Diarrheal) 2 Mg Tablet, 2 MG PO Q4H PRN for DIARRHEA Allergies Coded Allergies: apixaban (Verified Allergy, Unknown, 07/21/20) A-FIB/CHADSVASC A-FIB History Current/History of A-Fib/PAF?: Yes Current PO Anticoag Therapy: No Treatment Treatment ordered: Holding Other Reason Anticoagulant not given: Current bleeding SILVIO MILLIGAN MD July 21, 2020 22:44
[2020-07-21] MEDS ORDERED: SPIR-10 PO (22:49)
[2020-07-21] MEDS ORDERED: FARX1TAB3 PO (22:49)
[2020-07-21] MEDS ORDERED: PRED25TA PO (22:49)
[2020-07-21] MEDS ORDERED: GLIP5TAB8 PO (22:49)
[2020-07-21] MEDS ORDERED: CARV6.25 PO (22:49)
[2020-07-21] MEDS ORDERED: B-12100021 PO (22:49)
[2020-07-21] MEDS ORDERED: ENTR1TAB PO (22:49)
[2020-07-21] MEDS ORDERED: PYRI60TA2 PO (22:49)
[2020-07-21] MEDS ORDERED: METF-839 PO (22:49)
[2020-07-21] MEDS ORDERED: ASPI-161 PO (22:49)
[2020-07-21] MEDS ORDERED: ANTI2TAB16 PO (22:49)
[2020-07-21] MEDS ORDERED: PANT40TA29 PO (22:49)
[2020-07-22] MEDS ORDERED: PYRIDOXINE 50 MG TAB PO SCH (00:10)
[2020-07-22 00:59] LABS: FERRITIN 94 NG/ML (26-388); IRON (FE) 15 UG/DL (65-175); PERCENT SATURATION 12.8 % (19.7-50.0); TOTAL IRON BINDING CAPACITY 117 UG/DL (250-450)
[2020-07-22] MEDS: ENTRESTO 24-26MG TABLET (SACUBITRIL/VALSARTAN) PO SCH ×2 (01:53→08:27)
[2020-07-22] MEDS: PYRIDOSTIGMINE 60 MG TAB PO SCH ×3 (01:54→12:02)
[2020-07-22] MEDS: CARVedilol 6.25 MG TAB PO SCH ×2 (01:56→08:27)
[2020-07-22 04:12] LABS: HEMATOCRIT 34.7 % (42.0-52.0); HEMOGLOBIN 10.6 g/dl (13.5-17.5); MEAN CORPUSCULAR HEMOGLOBIN 28.6 pg (27.0-33.0); MEAN CORPUSCULAR HGB CONC 30.5 g/dl (32.0-36.5); MEAN CORPUSCULAR VOLUME 93.8 fl (80.0-96.0); PLATELET COUNT, AUTOMATED 278 10^3/uL (150-450); WHITE BLOOD COUNT 7.3 10^3/uL (4.0-10.0)
[2020-07-22 04:36] LABS: BLOOD UREA NITROGEN 15 MG/DL (7-18); CALCIUM LEVEL 7.8 MG/DL (8.8-10.2); CARBON DIOXIDE LEVEL 26 MEQ/L (21-32); CHLORIDE LEVEL 108 MEQ/L (98-107); CREATININE FOR GFR 0.94 MG/DL (0.70-1.30); GLOMERULAR FILTRATION RATE > 60.0 (>42); GLUCOSE, FASTING 103 MG/DL (70-100); POTASSIUM SERUM 3.6 MEQ/L (3.5-5.1); SODIUM LEVEL 140 MEQ/L (136-145)
[2020-07-22] MEDS ORDERED: NS 1,000 ML IV SCH (05:15)
[2020-07-22] MEDS: HumaLOG INSULIN (NovoLOG) PER UNIT SC SCH ×3 (05:51→12:02)
[2020-07-22] MEDS ORDERED: metroNIDAZOLE 500 MG in IV 1 EA IV SCH (07:00)
[2020-07-22 08:00] VITALS: BP 144/92
[2020-07-22 08:27] VITALS: BP 144/92
[2020-07-22 08:56] LABS: VITAMIN B12 LEVEL > 2000 PG/ML (247-911)
[2020-07-22 08:57] LABS: FOLATE 17.8 NG/ML (>5.4)
[2020-07-22] MEDS ORDERED: PANTOPRAZOLE 40MG TAB (PROTONIX) PO SCH (09:00)
[2020-07-22] MEDS ORDERED: SPIRONOLACTONE 12.5MG PER 1/2 TABLET PO SCH (09:00)
[2020-07-22] MEDS ORDERED: predniSONE 2.5 MG TAB PO SCH (09:00)
[2020-07-22] MEDS ORDERED: CYANOCOBALAMIN 500 MCG TAB PO SCH (09:00)
[2020-07-22 12:00] VITALS: BP 132/84
[2020-07-22] MEDS ORDERED: CIPR-249 PO (13:12)
--- NOTE | 2020-07-22 13:23 | DS.PDOC ---
Discharge Summary General Date of Admission July 21, 2020 at 22:29 Date of Discharge 07/22/2020 Attending Physician: RENEE HOANG MD Discharge Summary PROCEDURES PERFORMED DURING STAY: None ADMITTING DIAGNOSES: LGIB DISCHARGE DIAGNOSES: LGIB Segmental colitis Chronic HFpEF w HFrEF (G2 & EF 35%) Myasthenia Gravis Waldenstroms Macroglobulinemia Essential HTN DLP Hiatal Hernia NIDDM Splenomegaly DAPHNIE Paroxysmal Afib COMPLICATIONS/CHIEF COMPLAINT: Lgi Bleed. HISTORY OF PRESENT ILLNESS: Very pleasant 79 yr old M who spends [place]m in [place] and 4m in [facility] who recentl y returned to the area from [place] and presented to the ED last night for bloody bowel movement i/s/o 1-2 weeks that have note remitted reporting initially non bloody frequent stooling that became genevieve diarrhea with up to 5 episodes per day and in the last day had turned bloody without any abdominal pain, chest pain, dyspnea or dizziness. His last colonscopy was 2 years ago and as far he knows, was "ok" It was done in [place]. HOSPITAL COURSE: In the ED, he was hemodynamically stable and had 3 episodes of diarrhea in his 12 hours of being in the ED. His Hgb was 11.2 and after hydration was 10.7. He GI panel was negative for common pathogens and he was started on cipro that he will take for 7d. I spoke with Dr. Billy who is covering the surgical service while we do not have GI this week and he recommended outpatient referral for outpatient colonoscopy. I will at this time give him a 7d course of cipro for potential infectious colitis vs. diverticulitis given the CT findings and will refer him to GI for colonoscopy given true iron deficiency that could not be explained by 1-2 weeks of diarrhea with bloody elements. He also noted some weight loss that he could not give exact details and is 79 years old. He will continue his xarelto for now and his iron supplementation, with close PCP follow up for H/H check and GI referral for colonoscopy. DISCHARGE MEDICATIONS: Please see below. ALLERGIES: Please see below. PHYSICAL EXAMINATION ON DISCHARGE: VITAL SIGNS: Please see below. GENERAL APPEARANCE: slim build, well developed, NAD HEENT: NCAT, EOMI, PERRLA, no scleral icterus CARDIOVASCULAR: RRR/NMRG/ no LE edema LUNGS: CTAB on RA ABDOMEN: flat /soft & NTND MUSCULOSKELETAL: NCAT / TRICE x 4 INTEGUMENT: not flushed or pale NEUROLOGICAL: speech not dysarthric PSYCHIATRIC: A&Ox 3 /able to understand and follow all commands LABORATORY DATA: Please see below. IMAGING: CT A/P: Lungs: Mild bibasilar atelectasis. Mediastinal space: A moderate hiatal hernia is present. Liver: Normal. No mass. Gallbladder and bile ducts: Normal. No calcified stones. No ductal dilation. Pancreas: Normal. No ductal dilation. Spleen: There is mild to moderate splenomegaly with a maximum span of 15 centimeters. No focal abnormalities demonstrated. Adrenal glands: Normal. No mass. Kidneys and ureters: Normal. No hydronephrosis. Stomach and bowel: Duodenal diverticulum. There is increased feces throughout the colon consistent with constipation. There is diffuse thickening of the wall of the colon most pronounced in the distal left sigmoid colon and rectum. Finding may be related to diverticular disease however changes secondary to chronic colitis to be excluded clinically. Suggestion of mild pericolonic inflammatory changes demonstrated at the junction of the left and sigmoid colon may represent mild uncomplicated diverticulitis or a focus of segmental colitis. Appendix: No evidence of appendicitis. Intraperitoneal space: See "Soft tissues" finding. Vasculature: Enlarged main portal vein and right and left portal veins without thrombosis, main portal vein measuring 2.3 cm maximally. The aortoiliac vessels demonstrate moderate atherosclerotic calcification. Lymph nodes: Unremarkable. No enlarged lymph nodes. Urinary bladder: Diffuse bladder wall thickening. Bladder incompletely distended. Finding most likely represents changes related to incomplete distention and or mild bladder outlet obstruction. Reproductive: The prostate gland demonstrates mild hyperplasia. Bones/joints: The spine demonstrates mild degenerative changes. Moderate central spinal stenosis L3-L4 and L4-L5. Scoliosis. Soft tissues: Left inguinal hernia. Increased density in the proximal hernia may represent fluid within the hernia sac. Incarceration be excluded clinically. IMPRESSION: 1. A moderate hiatal hernia is present. 2. There is mild to moderate splenomegaly with a maximum span of 15 centimeters. No focal abnormalities demonstrated. 3. Mild prostatic hyperplasia. 4. Left inguinal hernia. Increased density in the proximal hernia may represent fluid within the hernia sac. Incarceration be excluded clinically. 5. There is increased feces throughout the colon consistent with constipation. 6. There is diffuse thickening of the wall of the colon most pronounced in the distal left sigmoid colon and rectum. Finding may be related to diverticular disease however changes secondary to chronic colitis to be excluded clinically. Suggestion of mild pericolonic inflammatory changes demonstrated at the junction of the left and sigmoid colon may represent mild uncomplicated diverticulitis or a focus of segmental colitis. PROGNOSIS: Good ACTIVITY: As tolerated DIET: Consistent carb diet DISCHARGE PLAN: Home with close PCP and prompt GI referral DISPOSITION: Home DISCHARGE INSTRUCTIONS: Home with close PCP follow up and prompt GI referral 7d of PO cipro ITEMS TO FOLLOWUP ON ON OUTPATIENT: GIB Colitis and diarrhea DISCHARGE CONDITION: Stable TIME SPENT ON DISCHARGE: 44 minutes. Vital Signs/I&Os Vital Signs Date Time Temp Pulse Resp B/P (MAP) Pulse Ox O2 Delivery O2 Flow Rate FiO2 07/22/20 12:00 97.6 81 20 132/84 (100) 94 07/22/20 01:59 Room Air I&O- Last 24 Hours up to 6 AM 07/22/20 06:00 Intake Total 930 ml Output Total 225 ml Balance 705 ml Laboratory Data Labs 24H Laboratory Tests 2 07/21/20 17:53: Neutrophils (%) (Auto) , Nucleated Red Blood Cells % (auto) 0.0, Neutrophils 57, Band Neutrophils 8, Lymphocytes (Manual) 19, Monocytes (Manual) 11H, Eosinophils (Manual) 2, Metamyelocytes 1H, Atypical Lymphocytes 2, Hypochromasia 1+, Platelet Estimate NORMAL, Prothrombin Time 15.2H, Prothromb Time International Ratio 1.17, Activated Partial Thromboplast Time 34.6, Anion Gap 5L, Glomerular Filtration Rate > 60.0, Lactic Acid Level 1.4, Calcium Level 8.7L, Total Manuel irubin 0.4, Direct Bilirubin 0.2, Aspartate Amino Transf (AST/SGOT) 35, Alanine Aminotransferase (ALT/SGPT) 18, Alkaline Phosphatase 96, Total Protein 6.4, Albumin 3.0L, Albumin/Globulin Ratio 0.9, Lipase 17L 07/21/20 19:17: Coronavirus (COVID-19)(PCR) NEGATIVE, Influenza Type A (RT-PCR) NEGATIVE, Influenza Type B (RT-PCR) NEGATIVE, Respiratory Syncytial Virus (PCR) NEGATIVE 07/21/20 20:48: Urine Color YELLOW, Urine Appearance CLOUDYH, Urine pH 5.0, Urine Specific [place] 1.016, Urine Protein 1+H, Urine Glucose (Auto)(UA) 3+H, Urine Ketones (Auto) NEGATIVE, Urine Blood 3+H, Urine Nitrite NEGATIVE, Urine Bilirubin NEGATIVE, Urine Urobilinogen 0.2, Urine Leukocyte Esterase (Auto) 3+H, Urine WBC (Auto) 54H, Urine RBC (Auto) 63H, Urine Hyaline Casts (Auto) 0, Urine Bacteria (Auto) 1+H, Urine Squamous Epithelial Cells 12, Urine Mucus (Auto) SMALL, Urine Sperm (Auto) 07/22/20 00:25: Estimated Mean Plasma Glucose 183H, Hemoglobin A1c 8.0, Iron Level 15L, Total Iron Binding Capacity 117L, Transferrin % Saturation 12.8L, Ferritin 94, Vitamin B12 Level > 2000H, Folate 17.8 07/22/20 01:52: Bedside Glucose (Misc Panel) 84 07/22/20 04:03: Nucleated Red Blood Cells % (auto) 0.0, Anion Gap 6L, Glomerular Filtration Rate > 60.0, Lactic Acid Level 0.7, Calcium Level 7.8L 07/22/20 05:31: Bedside Glucose (Misc Panel) 131H 07/22/20 11:59: Bedside Glucose (Misc Panel) 205H 07/22/20 12:04: CBC/BMP Laboratory Tests 07/21/20 17:53 07/22/20 00:25 07/22/20 04:03 07/22/20 11:54 FSBS Laboratory Tests Test 07/22/20 01:52 07/22/20 05:31 07/22/20 11:59 Range/Units Bedside Glucose (Misc Panel) 84 131 205 83-110 MG/DL Microbiology Microbiology 07/22/20 Blood Culture, Received Pending 07/21/20 Gastrointestinal Tract Panel (PCR) - Final, Complete 07/21/20 Urine Culture, Received Pending Discharge Medications Scheduled Ascorbic Acid (Vitamin C) 500 Mg Capsule, 500 MG PO BID, (Reported) Aspirin (Aspirin EC) 81 Mg Tablet.dr, 81 MG PO DAILY, (Reported) Atorvastatin Calcium (Atorvastatin Calcium) 40 Mg Tablet, 40 MG PO QHS, (Reported) Carvedilol (Carvedilol) 6.25 Mg Tablet, 6.25 MG PO BID, (Reported) Cyanocobalamin (Vitamin B-12) (B-12) 1,000 Mcg Tablet, 1,000 MCG PO DAILY, (Reported) Dapagliflozin Propanediol (Farxiga) 10 Mg Tablet, 10 MG PO QHS, (Reported) Ferrous Sulfate (Ferrous Sulfate) 325 Mg Tablet, 325 MG PO DAILY, (Reported) Glipizide (Glipizide) 5 Mg Tab, 10 MG PO DAILY, (Reported) Glipizide (Glipizide) 5 Mg Tablet, 5 MG PO QPM, (Reported) TAKES AT DINNER Metformin HCl (Metformin HCl) 500 Mg Tab, 1,000 MG PO DAILY, (Reported) Metformin HCl (Metformin HCl) 500 Mg Tablet, 500 MG PO BID, (Reported) DINNER AND BEDTIME Pantoprazole Sodium (Pantoprazole Sodium) 40 Mg Tablet.dr, 40 MG PO DAILY, (Reported) Prednisone (Prednisone) 2.5 Mg Tablet, 2.5 MG PO DAILY, (Reported) Pyridostigmine [place] (Pyridostigmine [place]) 60 Mg Tablet, 60 MG PO QID, (Reported) Pyridoxine HCl (Vitamin B6) (Vitamin B-6) 50 Mg Tablet, 50 MG PO QPM, (Reported) TAKES AT DINNER Rivaroxaban (Xarelto) 20 Mg Tablet, 20 MG PO QPM, (Reported) TAKES AT DINNER Sacubitril/Valsartan (Entresto 24 mg-26 mg Tablet) 1 Each Tablet, 1 TAB PO BID, (Reported) Spironolactone (Spironolactone) 25 Mg Tablet, 12.5 MG PO DAILY, (Reported) Zinc (Zinc) 50 Mg Tablet, 50 MG PO DAILY, (Reported) TAKES AT LUNCH Scheduled PRN Loperamide HCl (Anti-Diarrheal) 2 Mg Tablet, 2 MG PO Q4H PRN for DIARRHEA, (Reported) Allergies Coded Allergies: apixaban (Verified Allergy, Unknown, 07/21/20) RENEE HOANG MD July 22, 2020 13:23
[2020-07-22] MEDS ORDERED: CIPROFLOXACIN 500MG TABLET PO SCH (18:00)
== END 2020-07-22 16:16 | disposition home or self-care (01) | DRG 378 ==
LOC: M ED 15:36 → M ED INP 22:29 → EEVIPCON 22:29 → ENRESERV 07-22 02:24 → M PCU 07-22 03:15
PROVIDERS: ADMIT Internal Medicine; ATTEND Internal Medicine
DX: K57.33 Diverticulitis of large intestine without perforation or abscess with bleeding (principal); I50.42 Chronic combined systolic (congestive) and diastolic (congestive) heart failure; D62 Acute posthemorrhagic anemia; C88.0 Waldenstrom macroglobulinemia; E11.9 Type 2 diabetes mellitus without complications; G70.00 Myasthenia gravis without (acute) exacerbation; I11.0 Hypertensive heart disease with heart failure; I48.0 Paroxysmal atrial fibrillation; K44.9 Diaphragmatic hernia without obstruction or gangrene; Z79.82 Long term (current) use of aspirin; Z79.899 Other long term (current) drug therapy; Z88.8 Allergy status to other drugs, medicaments and biological substances; Z98.41 Cataract extraction status, right eye; Z98.42 Cataract extraction status, left eye

== ENCOUNTER → 2020-08-03 | Outpatient (REF) | payer MEDICARE ==
[~2020-08-03] MED LIST changes: +ANTI2TAB16 PO; +ASPI-161 PO; +B-12100021 PO; +CARV6.25 PO; +CIPR-249 PO; +ENTR1TAB PO; +FARX1TAB3 PO; +METF-839 PO; +PANT40TA29 PO; +PRED25TA PO; +SPIR-10 PO
[2020-08-03 17:29] LABS: BASO % 0.2 % (0.0-1.0); EOS # 0.1 10^3/uL (0.0-0.5); EOS % 0.5 % (0.0-3.0); HEMATOCRIT 37.1 % (42.0-52.0); HEMOGLOBIN 10.7 g/dl (13.5-17.5); LYMPH # 1.4 10^3/uL (1.5-5.0); LYMPH % 13.3 % (24.0-44.0); MEAN CORPUSCULAR HEMOGLOBIN 27.5 pg (27.0-33.0); MEAN CORPUSCULAR HGB CONC 28.8 g/dl (32.0-36.5); MEAN CORPUSCULAR VOLUME 95.4 fl (80.0-96.0); MONO # 0.6 10^3/uL (0.0-0.8); MONO % 5.4 % (2.0-8.0); NEUTROPHILS # 8.3 10^3/uL (1.5-8.5); NEUTROPHILS % 79.9 % (36.0-66.0); PLATELET COUNT, AUTOMATED 473 10^3/uL (150-450); RED BLOOD COUNT 3.89 10^6/uL (4.30-6.10); WHITE BLOOD COUNT 10.3 10^3/uL (4.0-10.0)
[2020-08-03 17:33] LABS: BLOOD UREA NITROGEN 16 MG/DL (7-18); CALCIUM LEVEL 8.5 MG/DL (8.8-10.2); CARBON DIOXIDE LEVEL 30 MEQ/L (21-32); CHLORIDE LEVEL 106 MEQ/L (98-107); CREATININE FOR GFR 0.93 MG/DL (0.70-1.30); GLOMERULAR FILTRATION RATE > 60.0 (>42); GLUCOSE, FASTING 123 MG/DL (70-100); POTASSIUM SERUM 4.2 MEQ/L (3.5-5.1); SODIUM LEVEL 141 MEQ/L (136-145)
[2020-08-03 17:34] LABS: ALBUMIN 2.8 GM/DL (3.2-5.2); ALT/SGPT 17 U/L (12-78); BILIRUBIN,TOTAL 0.3 MG/DL (0.2-1.0); TOTAL PROTEIN 6.7 GM/DL (6.4-8.2)
== END ==
LOC: M SFHCCAPE 07:27
PROVIDERS: ATTEND Physician Assistant
DX: K92.2 Gastrointestinal hemorrhage, unspecified (principal)